=== PATIENT | male | born 1985 | race Caucasian/White ===

== ENCOUNTER → 2018-10-05 | Outpatient (CLI) | payer OTHER ==
[~2018-10-05] MED LIST: AMOX-355 PO; CETI10TA20 PO; FLUT9.9S NS; LISI10TA2 PO; OMEP20CA12 PO; SULF-222 PO; TRAM50TA2 PO
--- NOTE | 2018-10-05 09:55 | Diagnostic Imaging Report ---
PROCEDURE: CT neck soft tissue with contrast. TECHNIQUE: Multiple contiguous axial images were obtained through the neck after the administration of contrast. Auto Exposure Controls were utilized during the CT exam to meet ALARA standards for radiation dose reduction. INDICATION: Questionable mass in the right side of the tongue and tonsil. No prior studies are available for comparison. The visualized intracranial structures are unremarkable. Posterior nasopharynx is unremarkable. Oropharynx appears unremarkable. In particular base of tongue and tonsillar pillar regions without evidence of a discrete mass, bilateral submandibular and parotid glands are symmetric. No thyroid mass is detected. No cervical lymphadenopathy is seen. No fluid collections are identified. Epiglottis and larynx are unremarkable. IMPRESSION: Unremarkable CT of the neck with contrast. Dictated by: Dictated on workstation # [id number]
== END ==
LOC: RAD 07:18
PROVIDERS: ATTEND Otolaryngology Otolaryngology/Facial Plastic Surgery
DX: K14.8 Other diseases of tongue (principal); J02.9 Acute pharyngitis, unspecified
CPT/HCPCS: 70491

== ENCOUNTER 2018-10-09 10:06 | Outpatient (CLI) | payer OTHER ==
[~2018-10-09] VITALS: Ht 177.8 cm; Wt 118.1 kg
[~2018-10-09 10:06] MED LIST changes: -CETI10TA20 PO; -FLUT9.9S NS
[2018-10-09] MEDS ORDERED: FLUT9.9S NS (10:17)
[2018-10-09] MEDS ORDERED: LISI10TA2 PO (10:17)
[2018-10-09] MEDS ORDERED: CETI10TA20 PO (10:17)
[2018-10-10] MEDS ORDERED: ACHD5005 PO (13:42)
== END 2018-10-09 10:27 ==
LOC: PREOP 10:06
PROVIDERS: ATTEND Otolaryngology Otolaryngology/Facial Plastic Surgery
DX: Z01.818 Encounter for other preprocedural examination (principal)

== ENCOUNTER 2018-10-10 07:42 | Day surgery (SDC) | payer OTHER ==
[2018-10-10] VITALS (12 sets, daily range): BP systolic 131–184; BP diastolic 74–116
[~2018-10-10] VITALS: Ht 177.8 cm; Wt 118.1 kg
[~2018-10-10 07:42] MED LIST changes: +CETI10TA20 PO; +FLUT9.9S NS
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
[2018-10-10] MEDS: LACTATED RINGERS 1,000 ML IV PRN ×2 (08:05→11:45)
[2018-10-10 08:25] LABS: BASOPHILS % (AUTO) 0 % (0-10); EOSINOPHILS # (AUTO) 0.1 10^3/uL (0.0-0.3); EOSINOPHILS % (AUTO) 2 % (0-10); HEMATOCRIT 42 % (40-54); HEMOGLOBIN 14.3 G/DL (13.3-17.7); LYMPHOCYTES % (AUTO) 36 % (12-44); MEAN CORPUSCULAR HEMOGLOBIN 30 PG (25-34); MEAN CORPUSCULAR HGB CONC 34 G/DL (32-36); MEAN CORPUSCULAR VOLUME 90 FL (80-99); MEAN PLATELET VOLUME 11.5 FL (7.4-10.4); MONOCYTES # (AUTO) 0.5 X 10^3 (0.0-1.0); MONOCYTES % (AUTO) 9 % (0-12); NEUTROPHILS # (AUTO) 2.9 X 10^3 (1.8-7.8); NEUTROPHILS % (AUTO) 53 % (42-75); PLATELET COUNT 164 10^3/uL (130-400); RED CELL DISTRIBUTION WIDTH 13.1 % (10.0-14.5); WHITE BLOOD COUNT 5.4 10^3/uL (4.3-11.0)
[2018-10-10 08:42] LABS: BUN/CREATININE RATIO 25; CALCIUM 8.9 MG/DL (8.5-10.1); CARBON DIOXIDE 19 MMOL/L (21-32); CHLORIDE 106 MMOL/L (98-107); CREATININE SERUM 0.77 MG/DL (0.60-1.30); GFR ESTIMATED > 60; GLUCOSE 100 MG/DL (70-105); POTASSIUM 3.9 MMOL/L (3.6-5.0); SODIUM 139 MMOL/L (135-145)
[2018-10-10] MEDS ORDERED: ONDANSETRON 4 MG/2 ML (SDV) Z0FRAN ONE ×2 (08:51→12:12)
[2018-10-10] MEDS ORDERED: FAMOTIDINE 20MG/2ML IV (PEPCID) ONE (08:51)
[2018-10-10] MEDS ORDERED: ONDANSETRON 4 MG/2 ML (SDV) Z0FRAN IVP ONE (09:15)
[2018-10-10] MEDS ORDERED: FAMOTIDINE 20MG/2ML IV (PEPCID) IVP ONE (09:15)
[2018-10-10] MEDS ORDERED: LIDOCAINE/EPI 1%-1:100,000 (XYLOCAINE) 20ML ONE (10:25)
[2018-10-10] MEDS ORDERED: MIDAZOLAM 2 MG/2 ML (VERSED) VIAL ONE (10:38)
[2018-10-10] MEDS ORDERED: fentaNYL INJECTION 100 MCG/2 ML AMP ONE ×2 (10:38→11:54)
--- NOTE | 2018-10-10 10:54 | Progress Note-Pre Operative ---
Pre-Operative Progress Note H&P Reviewed The H&P was reviewed, patient examined and no changes noted. Date Seen by Provider: Oct 10, 2018 Time Seen by Provider: 10:45 Date H&P Reviewed: Oct 10, 2018 Time H&P Reviewed: :45 Pre-Operative Diagnosis: Right Unilateral throat pain with REferred ear pain KATIE JUNIOR MD Oct 10, 2018 10:54
[2018-10-10] MEDS ORDERED: proPOfol 200 MG/20 ML (DIPRIVAN) VIAL IV ONE ×2 (11:01→11:23)
[2018-10-10] MEDS ORDERED: ROCURONIUM 10 MG/ML 5 ML SYRINGE IV ONE (11:23)
[2018-10-10] MEDS ORDERED: SUCCINYLCHOLINE INJ 100 MG/5 ML SYR ONE (11:23)
[2018-10-10] MEDS ORDERED: SEVOFLURANE (ULTANE) 15 ML INHAL SOLN ONE ×2 (11:27→12:05)
[2018-10-10] MEDS ORDERED: DEXAMETHASONE 10 MG/ML (DECADRON) 1 ML VIAL ONE (11:27)
--- NOTE | 2018-10-10 11:42 | Progress Note-Post Operative ---
Post-Operative Progess Note Surgeon (s)/[employer] Truck Driver (s) Surgeon KATIE JUNIOR MD [employer] Driver n/a Pre-Operative Diagnosis Right Unilateral throat pain with REferred ear pain Post-Operative Diagnosis same Post-Op Procedure Note Date of Procedure: Oct 10, 2018 Name of Procedure Performed: Direct Laryngosocpy with Biopsies of Right Base of Tongue Description & Findings Description and Findings: n/a Anesthesia Type get Estimated Blood Loss minimal Packing none. Specimen(s) collected/removed right base of tongue biopsies KATIE JUNIOR MD Oct 10, 2018 11:41
[2018-10-10] MEDS ORDERED: HYDROcodone/APAP 5 MG/325 MG (LORTAB) TAB PO PRN (11:45)
[2018-10-10] MEDS ORDERED: ACETAMINOPHEN 325 MG TABLET PO PRN (11:45)
[2018-10-10] MEDS ORDERED: PROMETHAZINE INJ 25 MG/ML (PHENERGAN) AMP IV PRN (11:45)
[2018-10-10] MEDS ORDERED: NEOSTIGMINE 1 MG/ML 5 ML SYRINGE ONE (12:03)
[2018-10-10] MEDS ORDERED: GLYCOPYRROLATE 0.2 MG/ML (ROBINUL) 2 ML VIAL ONE (12:03)
[2018-10-10] MEDS ORDERED: PROMETHAZINE INJ 25 MG/ML (PHENERGAN) AMP IVP ONE (12:15)
[2018-10-10] MEDS ORDERED: ONDANSETRON 4 MG/2 ML (SDV) Z0FRAN IVP PRN (12:15)
[2018-10-10] MEDS ORDERED: HYDROmorphone 2 MG/ML VIAL (DILAUDID) IV ONE (12:15)
[2018-10-10] MEDS ORDERED: ACHD5005 PO (13:42)
--- NOTE | 2018-10-10 13:47 | Anesthesia-General Post-Op ---
General Patient Condition Mental Status/LOC: Same as Preop Cardiovascular: Satisfactory Nausea/Vomiting: Absent Respiratory: Satisfactory Pain: Controlled Complications: Absent Post Op Complications Complications None Follow Up Care/Instructions Patient Instructions None needed. Anesthesia/Patient Condition Patient Condition Patient is doing well, no complaints, stable vital signs, no apparent adverse anesthesia problems. No complications reported per nursing. YEMI KNOX CRNA Oct 10, 2018 13:47
== END 2018-10-10 14:20 | disposition home or self-care (01) ==
LOC: SDC 07:42
PROVIDERS: ATTEND Otolaryngology Otolaryngology/Facial Plastic Surgery
DX: J35.1 Hypertrophy of tonsils (principal); K13.29 Other disturbances of oral epithelium, including tongue; R07.0 Pain in throat; H91.91 Unspecified hearing loss, right ear; I10 Essential (primary) hypertension; K21.9 Gastro-esophageal reflux disease without esophagitis; Z79.899 Other long term (current) drug therapy
CPT/HCPCS: 36415; 80048; 85025; 87081

== ENCOUNTER 2019-07-14 08:47 | Emergency (ER) | payer OTHER ==
[~2019-07-14] VITALS: Ht 180 cm; Wt 118.2 kg
[~2019-07-14 08:47] MED LIST changes: +ACHD5005 PO
--- NOTE | 2019-07-14 09:14 | ED Lower Extremity ---
General Chief Complaint: Lower Extremity Stated Complaint: L FOOT PAIN Nursing Triage Note: PT TO RM 6 WITH COMPLAINT OF LEFT FOOT PAIN AFTER DROPPING TRAILER GATE ON FOOT. PT STATES HAPPENED YESTERDAY. Nursing Sepsis Screen: No Definite Risk Source: patient Exam Limitations: no limitations History of Present Illness Date Seen by Provider: Jul 14, 2019 Time Seen by Provider: 08:58 Initial Comments This 33-year-old gentleman presents to the emergency room with injury to the left foot after dropping a trailer tailgate on it last night. The tailgate was made of angle iron and struck him directly over the dorsal aspect of the foot. He has a contusion in that area as well as bruising on the opposite side of the foot on his sole. He has not been able to bear weight. His foot is generally swollen. He also has arthritic problems and disfigurement of the toes bilaterally. This is being worked up with a rheumatology network consultant. He took 2 leftover hydrocodone last night with modest relief. He also takes diclofenac. Onset: yesterday Allergies and Home Medications Allergies Coded Allergies: aspirin (Verified Allergy, Severe, ANAPHYLAXIS, 10/09/18) Penicillins (Verified Allergy, Mild, HIVES, 10/09/18) Home Medications Cetirizine HCl 10 Mg Tablet, 10 MG PO DAILY, (Reported) Fluticasone Propionate 9.9 Ml [place].susp, 1 SPRAY NS DAILY, (Reported) 1 SPRAY EACH NARE DAILY Hydrocodone Bit/Acetaminophen 1 Tab Tab, 1-2 TAB PO Q4H PRN for PAIN-MODERATE Prescribed by: HANY WHITMAN on 10/10/18 1342 Lisinopril 10 Mg Tablet, 10 MG PO DAILY, (Reported) Oxycodone HCl/Acetaminophen 1 Each Tablet, 1 TAB PO Q4H PRN for PAIN-MODERATE (5-7) Prescribed by: SALEEM TAI on 07/14/19 0953 Patient Home Medication List Home Medication List Reviewed: Yes Review of Systems Constitutional: no symptoms reported EENTM: no symptoms reported Respiratory: no symptoms reported Cardiovascular: no symptoms reported Gastrointestinal: no symptoms reported Genitourinary: no symptoms reported Musculoskeletal: see HPI Skin: see HPI Psychiatric/Neurological: No Symptoms Reported Past Zhxlglv-Ovniof-Pzeihp Hx Past Med/Social Hx: Reviewed and Corrections made Patient Social History Alcohol Use: Occasionally Uses Number of Drinks Today: GG Alcohol Beverage of Choice: Whiskey, [place] Recreational Drug Use: No Smoking Status: Never a Smoker 2nd Hand Smoke Exposure: No Recent Foreign Travel: No Contact w/Someone Who Travel: No Recent Infectious Disease Expo: No Recent Hopitalizations: No Immunizations Up To Date Tetanus Booster (TDap): More than 5yrs Date of Influenza Vaccine: Apr 19, 2014 Seasonal Allergies Seasonal Allergies: Yes Past Medical History Surgeries: Yes (FINGER RECONSTRUCTION) Respiratory: No Cardiac: Yes Hypertension Neurological: No Reproductive Disorders: No Sexually Transmitted Disease: No HIV/AIDS: No Genitourinary: No Gastrointestinal: Yes (MILD REFLUX) Gastroesophageal Reflux Musculoskeletal: Yes Arthritis Endocrine: No HEENT: No Loss of Vision: Denies Hearing Impairment: Denies Cancer: No Psychosocial: No Integumentary: No Blood Disorders: No Adverse Reaction/Blood Tranf: No (N/A) Family Medical History Hypertension 18 MOTHER No Family History of: Asthma Diabetes mellitus Respiratory disorder Seizure disorder Physical Exam Vital Signs Vital Signs - First Documented 07/14/19 08:57 Pulse 104 Resp 20 B/P (MAP) 151/104 (120) Pulse Ox 98 O2 Delivery Room Air Capillary Refill : Less Than 3 Seconds Height, Weight, BMI Height: 5'10.00" Weight: 260lbs. 5.0oz. 118.448051pd; 36.00 BMI Method:Stated General Appearance: WD/WN, mild distress HEENT: normal ENT inspection Cardiovascular: regular rate, rhythm, no edema, no murmur Respiratory: lungs clear, normal breath sounds, no respiratory distress Knees: left knee normal inspection, left knee normal range of motion Ankles: left ankle non-tender, left ankle normal inspection, left ankle normal range of motion, left ankle no evidence of injury Feet: left foot other (there is bruising on the dorsal aspect of the midfoot and corresponding bruising on the plantar aspect medially. There is tenderness over the areas of bruising as well as over the fifth metatarsal. Distal sensation and capillary refill intact.) Neurologic/Psychiatric: set and exhibit designer II-XII nml as tested, no motor/sensory deficits, alert, normal mood/affect, oriented x 3 Skin: normal color, warm/dry, ecchymosis Progress/Results/Core Measures Results/Orders My Orders Orders - SALEEM HOGAN MD Oxycodone/Apap 5/325mg Tablet (Percocet (07/14/19 09:15) Foot, Left, 3 Views (07/14/19 09:07) Medications Given in ED Vital Signs/I&O 07/14/19 07/14/19 08:57 10:21 Pulse 104 88 Resp 20 20 B/P (MAP) 151/104 (120) 146/90 (120) Pulse Ox 98 98 O2 Delivery Room Air Room Air Blood Pressure Mean: 120 Progress Progress Note : Time: 09:13 Progress Note Patient is being treated with Percocet for pain management. X-rays of the foot are pending. Diagnostic Imaging Diagonstic Imaging: Xray Comments X-ray of the left foot viewed by me and report reviewed. See report below: NAME: YOLETTE GOINS [facility] REC#: [id number] PT STATUS: DEP ER : 1985 PHYSICIAN: SALEEM HOGAN MD ADMIT DATE: 07/14/19/ER Signed Date of Exam:07/14/19 FOOT, LEFT, 3 VIEWS HISTORY: Trauma to the dorsal left foot. TECHNIQUE: 3 views of the left foot COMPARISON: None FINDINGS: There is heterogeneous hypodensity seen in the left foot, more pronounced in the distal 2nd through 5th metatarsals. There is chronic lateral angulation of the 2nd toe DIP joint. There is an avulsion fracture at the medial aspect of the 1st metatarsal base. Os peroneum is noted. There is a small plantar calcaneal enthesophyte. IMPRESSION: 1. Nondisplaced avulsion fracture at the medial aspect of the left 1st metatarsal base. 2. Somewhat heterogeneous density, most pronounced in the 2nd through 5th metatarsal heads. This may be due to osteopenia, although other inflammatory process is not excluded. If clinically indicated, nonemergent MRI could be considered. Dictated by: Dictated on workstation # [id number] Dict: 07/14/19929 Trans: 07/14/19 1221 PRISCILLA [id number] Interpreted by: JUAN SIMMONS MD Electronically signed by: JUAN SIMMNOS MD 07/14/19 1221 Departure Impression Primary Impression: Closed fracture of left foot Qualified Codes: S92.902A - Unspecified fracture of left foot, initial encounter for closed fracture Disposition: 01 HOME, SELF-CARE Condition: Improved Departure-Patient Inst. Decision time for Depature: 09:44 Referrals: NO,LOCAL PHYSICIAN (PCP) Primary Care Physician MENA HORTON (Family) Primary Care Physician Patient Instructions: Foot Fracture (DC) Add. Discharge Instructions: Use the cam walker as much as possible. Do not bear weight on your left foot until cleared by orthopedic surgeon or a thermostat mechanic. Follow-up with the orthopedic surgeon or thermostat mechanic as soon as possible. Use Percocet as directed for pain. You may wish to use a stool softener while using Percocet to prevent constipation. Use Percocet with caution as it may cause drowsiness. You may apply ice in 20 minute intervals to help with pain and swelling. Elevate to the level of your heart is much as possible to help with swelling. Compressive wraps such as an Jack bandage may also be used if they provide comfort. Return to care if you have worsening problems. All discharge instructions reviewed with patient and/or family. Voiced understanding. Scripts Oxycodone HCl/Acetaminophen (Percocet 5-325 mg Tablet) 1 Each Tablet 1 TAB PO Q4H PRN for PAIN-MODERATE (5-7) MDD 6 TABS, #20 TAB Prov: SALEEM HOGAN MD 07/14/19 Work/School Note: Work Release Form Date Seen in the Emergency Department: Jul 14, 2019 Return to Work: Jul 15, 2019 Other Restrictions Listed Below: No weightbearing on left foot until cleared SALEEM HOGAN MD Jul 14, 2019 09:14
[2019-07-14] MEDS ORDERED: oxyCODONE/APAP 5/325MG (PERCOCET 5) TABLET PO ONE (09:15)
--- NOTE | 2019-07-14 09:37 | Diagnostic Imaging Report ---
HISTORY: Trauma to the dorsal left foot. TECHNIQUE: 3 views of the left foot COMPARISON: None FINDINGS: There is heterogeneous hypodensity seen in the left foot, more pronounced in the distal 2nd through 5th metatarsals. There is chronic lateral angulation of the 2nd toe DIP joint. There is an avulsion fracture at the medial aspect of the 1st metatarsal base. Os peroneum is noted. There is a small plantar calcaneal enthesophyte. IMPRESSION: 1. Nondisplaced avulsion fracture at the medial aspect of the left 1st metatarsal base. 2. Somewhat heterogeneous density, most pronounced in the 2nd through 5th metatarsal heads. This may be due to osteopenia, although other inflammatory process is not excluded. If clinically indicated, nonemergent MRI could be considered. Dictated by: Dictated on workstation # [id number]
[2019-07-14] MEDS ORDERED: OXYC1TAB87 PO (09:53)
[2019-07-14 10:21] VITALS: BP 146/90
== END 2019-07-14 10:21 | disposition home or self-care (01) ==
LOC: EDUNIT# 08:47 → ER 08:48
DX: S92.902A Unspecified fracture of left foot, initial encounter for closed fracture (principal); I10 Essential (primary) hypertension; Z88.6 Allergy status to analgesic agent; Z88.0 Allergy status to penicillin; Z79.51 Long term (current) use of inhaled steroids; Z82.49 Family history of ischemic heart disease and other diseases of the circulatory system; W20.8XXA Other cause of strike by thrown, projected or falling object, initial encounter
CPT/HCPCS: 73630

== ENCOUNTER 2021-09-20 07:41 | Emergency (ER) | payer OTHER ==
[~2021-09-20] VITALS: Ht 180 cm; Wt 121.0 kg
[~2021-09-20 07:41] MED LIST changes: -CETI10TA20 PO; +CETI10TA49 PO; +LISI10TA25 PO; +OXYC1TAB87 PO
[2021-09-20 08:22] LABS: EOSINOPHILS # (AUTO) 0.1 10^3/uL (0.0-0.3); EOSINOPHILS % (AUTO) 2 % (0-10); HEMOGLOBIN 14.9 g/dL (13.3-17.7)
[2021-09-20 08:24] LABS: BASOPHILS % (AUTO) 1 % (0-10); HEMATOCRIT 43 % (40-54); LYMPHOCYTES # (AUTO) 2.1 10^3/uL (1.0-4.0); LYMPHOCYTES % (AUTO) 47 % (12-44); MEAN CORPUSCULAR HEMOGLOBIN 32 pg (25-34); MEAN CORPUSCULAR HGB CONC 34 g/dL (32-36); MEAN CORPUSCULAR VOLUME 92 fL (80-99); MEAN PLATELET VOLUME 11.1 fL (9.0-12.2); MONOCYTES # (AUTO) 0.3 10^3/uL (0.0-1.0); MONOCYTES % (AUTO) 6 % (0-12); NEUTROPHILS % (AUTO) 45 % (42-75); WHITE BLOOD COUNT 4.5 10^3/uL (4.3-11.0)
[2021-09-20 08:28] LABS: ALBUMIN 3.8 GM/DL (3.2-4.5); POTASSIUM 3.8 MMOL/L (3.6-5.0)
[2021-09-20 08:29] LABS: CALCIUM 8.9 MG/DL (8.5-10.1); PLATELET COUNT 124 10^3/uL (130-400)
[2021-09-20 08:30] LABS: TOTAL PROTEIN 7.2 GM/DL (6.4-8.2)
[2021-09-20] MEDS ORDERED: NS IV 1000 ML 1,000 ML IV SCH ×2 (08:30→09:45)
[2021-09-20] MEDS ORDERED: ONDANSETRON 4 MG/2 ML (SDV) Z0FRAN IVP ONE (08:30)
[2021-09-20 08:32] LABS: BILIRUBIN,TOTAL 0.6 MG/DL (0.1-1.0)
[2021-09-20 08:34] LABS: CREATININE SERUM 0.85 MG/DL (0.60-1.30)
--- NOTE | 2021-09-20 08:37 | ED General ---
General Chief Complaint: Dizziness/Syncope Stated Complaint: DIZZY / VOMITING Nursing Triage Note: pt states he has been having trouble keeping food down for over a month. was referred to see a gi specialist apt on 09-30. Source of Information: Patient Exam Limitations: No Limitations History of Present Illness Date Seen by Provider: Sep 20, 2021 Time Seen by Provider: 08:08 Initial Comments Patient is a 36-year-old male who presents to the emergency department today with a chief complaint of feeling dizzy, lightheaded and nauseous. Patient has been fighting stomach issues for about the last 1 to 2 months. He has a follow- up scheduled for mid month with Dr. Mendoza, GI doctor in [place]. Patient states that every time he eats within minutes he vomits. He states this is even an issue with drinking large amounts of fluids. He has been fighting constipation as well. Had a CAT scan about a week ago at [facility]. He reports that he was told nothing significant was found at that time. He denies persistent black or bloody stools. No problems with urination. He does feel lightheaded and dizzy when he stands up. Had nausea with significant diaphoresis yesterday. States he threw up his blood pressure medicines this morning. States that his bowel movements have turned "yellow". Periodically takes an acid catholic priest, omeprazole [id number]. Denies heartburn issues. Tells me that he had surgery as an for pyloric stenosis. No other abdom inal surgeries. No recent fevers, chills, productive cough or other URI symptoms. All other review of systems reviewed and negative except as stated. Timing/Duration: Other (1-2 months) Severity: Moderate Modifying Factors: worse with Movement; improves with Rest Associated Systoms: Nausea/Vomiting, Other (weight loss 10-15# in 6 weeks) Allergies and Home Medications Allergies Coded Allergies: aspirin (Verified Allergy, Severe, ANAPHYLAXIS, 10/09/18) Penicillins (Verified Allergy, Mild, HIVES, 10/09/18) Patient Home Medication List Home Medication List Reviewed: Yes Cetirizine HCl (Zyrtec) 10 Mg Tablet, 10 MG PO DAILY, (Reported) Entered as Reported by: MERLINE GUEVARA on 10/09/18 1017 Fluticasone Propionate (Flonase Allergy Relief) 9.9 Ml [place].susp, 1 SPRAY NS DAILY, (Reported) Entered as Reported by: MERLINE GUEVARA on 10/09/18 1017 Hydrocodone Bit/Acetaminophen (Lortab 5 Mg Tablet) 1 Tab Tab, 1-2 TAB PO Q4H PRN for PAIN-MODERATE Prescribed by: HANY WHITMAN on 10/10/18 1342 Lisinopril (Lisinopril) 10 Mg Tablet, 10 MG PO DAILY, (Reported) Entered as Reported by: MERLINE GUEVARA on 10/09/18 1017 Oxycodone HCl/Acetaminophen (Percocet 5-325 mg Tablet) 1 Each Tablet, 1 TAB PO Q4H PRN for PAIN-MODERATE (5-7) Prescribed by: SALEEM TAI on 07/14/19 0953 Review of Systems Review of Systems Constitutional: see HPI EENTM: no symptoms reported Respiratory: no symptoms reported Cardiovascular: no symptoms reported Gastrointestinal: abdominal pain, constipation, nausea Genitourinary: no symptoms reported Musculoskeletal: no symptoms reported Skin: no symptoms reported Psychiatric/Neurological: Other (dizziness, weakness) All Other Systems Reviewed Negative Unless Noted: Yes Past Vexnptv-Lnrllh-Ylgish Hx Patient Social History Tobacco Use?: No Substance use?: No Alcohol Use?: Yes Alcohol type: Hard Liquor Alcohol Frequency: Couple times a week Immunizations Up To Date Tetanus Booster (TDap): More than 5yrs Seasonal Allergies Seasonal Allergies: Yes Past Medical History Surgery/Hospitalization HX: knee repair, growth taken out of throat Surgeries: Yes (FINGER RECONSTRUCTION) Respiratory: No Cardiac: Yes Hypertension Neurological: No Reproductive Disorders: No Sexually Transmitted Disease: No HIV/AIDS: No Genitourinary: No Gastrointestinal: Yes (MILD REFLUX) Gastroesophageal Reflux Musculoskeletal: Yes Arthritis Endocrine: No HEENT: No Loss of Vision: Denies Hearing Impairment: Denies Cancer: No Psychosocial: No Integumentary: No Blood Disorders: No Adverse Reaction/Blood Tranf: No (N/A) Family Medical History Hypertension 19 MOTHER No Family History of: Asthma Diabetes mellitus Respiratory disorder Seizure disorder Physical Exam Vital Signs Vital Signs - First Documented 09/20/21 07:52 Temp 37.0 Pulse 82 Resp 22 B/P (MAP) 169/103 (125) Pulse Ox 97 O2 Delivery Room Air Capillary Refill : Less Than 3 Seconds Height, Weight, BMI Height: 5'10.00" Weight: 260lbs. 5.0oz. [id number]; 37.00 BMI Method:Stated General Appearance: No Apparent Distress, WD/WN Eyes: Bilateral Eye Normal Inspection, Bilateral Eye PERRL, Bilateral Eye EOMI HEENT: PERRL/EOMI, TMs Normal, Moist Mucous Membranes Neck: Normal Inspection, Non Tender, Supple Respiratory: Lungs Clear, Normal Breath Sounds, No Accessory Muscle Use, No Respiratory Distress Cardiovascular: Regular Rate, Rhythm, Normal Peripheral Pulses Gastrointestinal: Soft, Tenderness (epigastrum, LUQ; no involuntary guarding or rebound) Extremity: Normal Inspection, No Pedal Edema Neurologic/Psychiatric: Alert, Oriented x3, No Motor/Sensory Deficits, Normal Mood/Affect Skin: Normal Color, Warm/Dry Progress/Results/Core Measures Suspected Sepsis SIRS Temperature: Pulse: 82 Respiratory Rate: 22 Laboratory Tests 09/20/21 08:04: White Blood Count 4.5 Blood Pressure 169 /103 Mean: 125 Laboratory Tests 09/20/21 08:04: Creatinine 0.85, Platelet Count 124L, Total Bilirubin 0.6 Results/Orders Lab Results Laboratory Tests Test 09/20/21 08:04 Range/Units White Blood Count 4.5 4.3-11.0 10^3/uL Red Blood Count 4.72 4.30-5.52 10^6/uL Hemoglobin 14.9 13.3-17.7 g/dL Hematocrit 43 40-54 % Mean Corpuscular Volume 92 80-99 fL Mean Corpuscular Hemoglobin 32 25-34 pg Mean Corpuscular Hemoglobin Concent 34 32-36 g/dL Red Cell Distribution Width 12.6 10.0-14.5 % Platelet Count 124 L 130-400 10^3/uL Mean Platelet Volume 11.1 9.0-12.2 fL Immature Granulocyte % (Auto) 0 % Neutrophils (%) (Auto) 45 42-75 % Lymphocytes (%) (Auto) 47 H 12-44 % Monocytes (%) (Auto) 6 0-12 % Eosinophils (%) (Auto) 2 0-10 % Basophils (%) (Auto) 1 0-10 % Neutrophils # (Auto) 2.0 1.8-7.8 10^3/uL Lymphocytes # (Auto) 2.1 1.0-4.0 10^3/uL Monocytes # (Auto) 0.3 0.0-1.0 10^3/uL Eosinophils # (Auto) 0.1 0.0-0.3 10^3/uL Basophils # (Auto) 0.0 0.0-0.1 10^3/uL Immature Granulocyte # (Auto) 0.0 0.0-0.1 10^3/uL Percent Immature Platelet Fraction 7.2 0.0-7.6 % Sodium Level 137 135-145 MMOL/L Potassium Level 3.8 3.6-5.0 MMOL/L Chloride Level 103 98-107 MMOL/L Carbon Dioxide Level 14 L 21-32 MMOL/L Anion Gap 20 H 5-14 MMOL/L Blood Urea Nitrogen 16 7-18 MG/DL Creatinine 0.85 0.60-1.30 MG/DL Estimat Glomerular Filtration Rate 115 BUN/Creatinine Ratio 19 Glucose Level 106 H 70-105 MG/DL Calcium Level 8.9 8.5-10.1 MG/DL Corrected Calcium 9.1 8.5-10.1 MG/DL Total Bilirubin 0.6 0.1-1.0 MG/DL Aspartate Amino Transf (AST/SGOT) 48 H 5-34 U/L Alanine Aminotransferase (ALT/SGPT) 59 H 0-55 U/L Alkaline Phosphatase 74 40-136 U/L Total Protein 7.2 6.4-8.2 GM/DL Albumin 3.8 3.2-4.5 GM/DL My Orders Orders - LAUREN HYMAN MD Ed Iv/Invasive Line Start (09/20/21 08:18) Cbc With Automated Diff (09/20/21 08:18) Comprehensive Metabolic Panel (09/20/21 08:18) Orthostatic Vital Signs (Adult (09/20/21 08:18) Ns Iv 1000 Ml (Sodium Chloride 0.9%) (09/20/21 08:30) Ondansetron Injection (Zofran Injectio (09/20/21 08:30) Metoclopramide Injection (Reglan Injecti (09/20/21 09:45) Diphenhydramine Injection (Benadryl Inje (09/20/21 09:45) Ns Iv 1000 Ml (Sodium Chloride 0.9%) (09/20/21 09:45) Medications Given in ED Current Medications Medications Dose Ordered Sig/Veena Route Start Time Stop Time Status Last Admin Dose Admin Diphenhydramine HCl 25 mg ONCE ONCE IVP 09/20/21 09:45 09/20/21 09:46 DC 09/20/21 10:22 25 MG Metoclopramide HCl 10 mg ONCE ONCE IVP 09/20/21 09:45 09/20/21 09:46 DC 09/20/21 10:22 10 MG Ondansetron HCl 8 mg ONCE ONCE IVP 09/20/21 08:30 09/20/21 08:31 DC 09/20/21 08:27 8 MG Vital Signs/I&O 09/20/21 07:52 Temp 37.0 Pulse 82 Resp 22 B/P (MAP) 169/103 (125) Pulse Ox 97 O2 Delivery Room Air Capillary Refill : Less Than 3 Seconds Blood Pressure Mean: 125 Progress Note : Time: 10:57 Progress Note Patient is feeling well after his first liter of fluids. Still little bit nauseous. Added some Reglan and Benadryl. Labs have been reviewed and are reassuring. I suspect that he may have some type of outlet obstruction that is causing him to vomit every time he eats and drinks. This is been a chronic problem, he already has follow-[place] bill[place]. I have given him 2 L of fluids here in the emergency department. He states he feels more energetic. No clinical or objective findings to warrant further study here in the emergency department. He has had a CAT scan of his abdomen and pelvis already through the clinic. I do not believe he needs an ultrasound at this time. No concerning findings on physical examination or reflected in the labs for acute cholecystitis. No other findings concerning for an acute abdomen. Home with Reglan and return precautions. The patient is comfortable with this plan of care. All questions are sought and answered. Departure Impression Primary Impression: Dehydration Additional Impression: Chronic vomiting Disposition: 01 HOME, SELF-CARE Condition: Improved Departure-Patient Inst. Decision time for Depature: 10:55 Referrals: NO,LOCAL PHYSICIAN (PCP) Primary Care Physician MENA HORTON (Family) Primary Care Physician Patient Instructions: Dehydration, Adult ED Add. Discharge Instructions: I have written you a prescription for some Reglan, you can take this 1 every 6-8 hours as needed for nausea. It may make you a little sleepy. Please keep your follow-up appointment with Dr. Mendoza in a couple of weeks. Return to the emergency department for any increased abdominal pain especially with fever, vomiting blood or passing blood in her stool. You should take an acid catholic priest such as omeprazole every day until you see Dr. Mendoza. Scripts Metoclopramide HCl (Reglan) 10 Mg Tablet 10 MG PO Q6H, #30 TAB 1 Refill Prov: LAUREN HYMAN MD 09/20/21 LAUREN HYMAN MD Sep 20, 2021 08:37
[2021-09-20] MEDS ORDERED: diphenhydrAMINE 50 MG/ML INJ (BENADRYL) IVP ONE (09:45)
[2021-09-20] MEDS ORDERED: METOCLOPRAMIDE INJ 10 MG/2 ML (REGLAN) IVP ONE (09:45)
[2021-09-20] MEDS ORDERED: METO-310 PO (10:57)
[2021-09-20 11:26] VITALS: BP 125/95
== END 2021-09-20 11:26 | disposition home or self-care (01) ==
LOC: EDUNIT# 07:41 → ER 07:42
DX: E86.0 Dehydration (principal); R11.2 Nausea with vomiting, unspecified; K21.9 Gastro-esophageal reflux disease without esophagitis; Z79.899 Other long term (current) drug therapy
CPT/HCPCS: 36415; 80053; 85025

== ENCOUNTER 2021-10-19 15:58 | Emergency (ER) | payer OTHER ==
[~2021-10-19] VITALS: Ht 71 cm; Wt 117.9 kg
[~2021-10-19 15:58] MED LIST changes: +METO-310 PO
[2021-10-19] MEDS ORDERED: TETANUS,DIPTH,PERTUSS P/F (BOOSTRIX) 0.5 ML VIAL IM ONE (16:15)
--- NOTE | 2021-10-19 16:15 | ED Upper Extremity ---
General Stated Complaint: HAND PAIN Source: patient Exam Limitations: no limitations History of Present Illness Date Seen by Provider: October 19, 2021 Time Seen by Provider: 16:11 Initial Comments Patient is a 36-year-old male presents ED with a puncture wound to right palmar hand. This occurred 1 hour ago while at work. He states his hand slipped on a bolt with redness. He states he had a pull out the night with the bolt. Noted some stringy stuff when removing a bolt. Patient has some pain with movement of the right thumb. No active bleeding. States he had a hydraulic fluid on his hand at the time. Not up-to-date on his tetanus within the past 5 years. No distal numbness and tingling, nausea vomiting, diarrhea. Allergies and Home Medications Allergies Coded Allergies: aspirin (Verified Allergy, Severe, ANAPHYLAXIS, 10/09/18) Penicillins (Verified Allergy, Mild, HIVES, 10/09/18) Patient Home Medication List Home Medication List Reviewed: Yes Cetirizine HCl (Zyrtec) 10 Mg Tablet, 10 MG PO DAILY, (Reported) Entered as Reported by: MERLINE GUEVARA on 10/09/18 1017 Doxycycline Monohydrate (Doxycycline Monohydrate) 100 Mg Tablet, 100 MG PO BID Prescribed by: GAMAL HERRERA on 10/19/21 1656 Fluticasone Propionate (Flonase Allergy Relief) 9.9 Ml [place].susp, 1 SPRAY NS DAILY, (Reported) Entered as Reported by: MERLINE GUEVARA on 10/09/18 1017 Hydrocodone Bit/Acetaminophen (Lortab 5 Mg Tablet) 1 Tab Tab, 1-2 TAB PO Q4H PRN for PAIN-MODERATE Prescribed by: HANY WHITMAN on 10/10/18 1342 Hydrocodone/Acetaminophen (Hydrocodone-Acetamin 5-325 mg) 5 Mg-325 Mg Tablet, 1 TAB PO Q4H PRN for PAIN-MODERATE (5-7) Prescribed by: GAMAL HERRERA on 10/19/21 1652 Lisinopril (Lisinopril) 10 Mg Tablet, 10 MG PO DAILY, (Reported) Entered as Reported by: MERLINE GUEVARA on 10/09/18 1017 Metoclopramide HCl (Reglan) 10 Mg Tablet, 10 MG PO Q6H Prescribed by: LAUREN HYMAN on 09/20/21 1057 Oxycodone HCl/Acetaminophen (Percocet 5-325 mg Tablet) 1 Each Tablet, 1 TAB PO Q4H PRN for PAIN-MODERATE (5-7) Prescribed by: SALEEM TAI on 07/14/19 0953 Review of Systems Constitutional: No chills, No diaphoresis, No fever EENTM: No ear pain, No blurred vision, No nose pain, No throat pain, No throat swelling Respiratory: No cough, No dyspnea on exertion, No short of breath Cardiovascular: No chest pain, No edema Gastrointestinal: No abdominal pain, No diarrhea, No nausea, No vomiting Genitourinary: No decreased output Musculoskeletal: joint pain, muscle pain Skin: other (Laceration right hand) All Other Systems Reviewed Negative Unless Noted: Yes Past Wytmnjb-Etxhhd-Unysqg Hx Immunizations Up To Date Tetanus Booster (TDap): More than 5yrs Seasonal Allergies Seasonal Allergies: Yes Past Medical History Surgery/Hospitalization HX: knee repair, growth taken out of throat Surgeries: Yes (FINGER RECONSTRUCTION) Respiratory: No Cardiac: Yes Hypertension Neurological: No Reproductive Disorders: No Sexually Transmitted Disease: No HIV/AIDS: No Genitourinary: No Gastrointestinal: Yes (MILD REFLUX) Gastroesophageal Reflux Musculoskeletal: Yes Arthritis Endocrine: No HEENT: No Loss of Vision: Denies Hearing Impairment: Denies Cancer: No Psychosocial: No Integumentary: No Blood Disorders: No Adverse Reaction/Blood Tranf: No (N/A) Family Medical History Hypertension 19 MOTHER No Family History of: Asthma Diabetes mellitus Respiratory disorder Seizure disorder Physical Exam Vital Signs Vital Signs - First Documented 10/19/21 16:05 Temp 36.3 Pulse 89 Resp 18 B/P (MAP) 159/89 (112) Pulse Ox 97 O2 Delivery Room Air Capillary Refill : Height, Weight, BMI Height: 5'10.00" Weight: 260lbs. 5.0oz. [id number]; 37.00 BMI Method:Stated General Appearance: WD/WN, no apparent distress HEENT: PERRL/EOMI, normal ENT inspection, TMs normal, pharynx normal Neck: non-tender, full range of motion, supple, normal inspection Cardiovascular: regular rate, rhythm, no edema, no gallop, no JVD Respiratory: chest non-tender, lungs clear, normal breath sounds, no respiratory distress, no accessory muscle use Gastrointestinal: normal bowel sounds, non tender, soft, no organomegaly Back: normal inspection, no CVA tenderness, no vertebral tenderness Shoulder: normal inspection, non-tender, no evidence of injury Elbow/Forearm: normal inspection, non-tender, no evidence of injury, normal ROM Hand: Right, laceration (2 cm laceration right palmar hand between the first and second metacarpals. Normal active range of motion right thumb with pain with flexion and opposition), soft tissue tenderness Neurologic/Psychiatric: [place] guide II-XII nml as tested, no motor/sensory deficits, normal mood/affect, oriented x 3 Skin: other (2 cm laceration right palmar thumb.) Progress/Results/Core Measures Results/Orders My Orders Orders - ASHLEY BRITT Hand, Right, 3 Views (10/19/21 16:10) Dipht,Pertuss(Acell),Tet Adult (Boostrix (10/19/21 16:15) Medications Given in ED Current Medications Medications Dose Ordered Sig/Veena Route Start Time Stop Time Status Last Admin Dose Admin Diphtheria/ Tetanus/Acell Pertussis 0.5 ml ONCE ONCE IM 10/19/21 16:15 10/19/21 16:16 DC 10/19/21 16:26 0.5 ML Vital Signs/I&O 10/19/21 16:05 Temp 36.3 Pulse 89 Resp 18 B/P (MAP) 159/89 (112) Pulse Ox 97 O2 Delivery Room Air Departure Communication (PCP) Patient suffered a puncture wound to the right palmar hand between the first and second. Difficulty with flexion and opposition of the thumb. This may be secondary to tissue inflammation versus muscular injury. 4 sutures were placed here. Extensive irrigation with Shur-Clens soap. Procedure documented note. 4 Ethilon sutures were placed here in the ED. X-ray was negative for acute fracture. Did note vague densities in the soft tissue webspace between the first and second metacarpal on the AP view. No obvious densities noted on the oblique and lateral. Discussed may have a possible foreign body to this location. Recommend hand surgeon outpatient follow-up. Provided number in discharge instructions. Discussed wound care. Doxycycline prophylactically secondary to dirty wound from hydraulic fluid. Patient Was given a tetanus shot. He is allergic to penicillins. Recommend removing sutures in 10 days. Return precaution were discussed with patient. Hand was wrapped up. Discussed immobilization to allow healing with brace versus wrap Impression Primary Impression: Hand laceration Disposition: 01 HOME, SELF-CARE Condition: Stable Departure-Patient Inst. Decision time for Depature: 16:51 Referrals: WILFREDO OCHOA,LOCAL PHYSICIAN (PCP) Primary Care Physician Patient Instructions: Laceration Repair With Stitches ED Add. Discharge Instructions: Recommend keeping the hand immobilized. Recommend pain medication as needed. Keep the area clean with Neosporin 2 or 3 times a day. Follow-up with hand surgery for further evaluation. Scripts Doxycycline Monohydrate (Doxycycline Monohydrate) 100 Mg Tablet 100 MG PO BID for 7 Days, #14 TAB Prov: ASHLEY BRITT 10/19/21 Hydrocodone/Acetaminophen (Hydrocodone-Acetamin 5-325 mg) 5 Mg-325 Mg Tablet 1 TAB PO Q4H PRN for PAIN-MODERATE (5-7), #10 TAB Prov: ASHELY BRITT 10/19/21 Work/School Note: Work Release Form Date Seen in the Emergency Department: October 19, 2021 Return to Work: October 22, 2021 ASHLEY BRITT October 19, 2021 16:15
--- NOTE | 2021-10-19 16:42 | Diagnostic Imaging Report ---
INDICATION: Laceration to the palm of the hand. TIME OF EXAM: 04:34 p.m. TECHNIQUE: Three views of the right hand were obtained. FINDINGS: There appears to be an old fracture deformity at the base of the fifth metacarpal. No acute metacarpal or phalangeal fracture is seen. Carpus is unremarkable. There are some vague densities noted in the webspace between the first and second metacarpals on the AP view. These are not reproduced on the oblique or lateral views. Foreign bodies cannot be entirely excluded. No other abnormalities are seen. IMPRESSION: 1. No acute bony abnormality detected. 2. Vague densities noted in the soft tissue webspace between the first and second metacarpals. Foreign bodies cannot be entirely excluded. Dictated by: Dictated on workstation # [id number]
[2021-10-19] MEDS ORDERED: ACHD5005 PO (16:52)
[2021-10-19] MEDS ORDERED: DOXY100T31 PO (16:56)
[2021-10-19 17:06] VITALS: BP 136/95
== END 2021-10-19 17:09 | disposition home or self-care (01) ==
LOC: EDUNIT# 15:58 → ER 16:03
DX: S61.411A Laceration without foreign body of right hand, initial encounter (principal); Z23 Encounter for immunization; W45.8XXA Other foreign body or object entering through skin, initial encounter
CPT/HCPCS: 12001; 73130; 90715

== ENCOUNTER 2021-12-23 03:18 | Inpatient (IN) | payer OTHER ==
[~2021-12-23] VITALS: Ht 180 cm; Wt 115.4 kg
[~2021-12-23 03:18] MED LIST changes: +DOXY100T31 PO
--- NOTE | 2021-12-23 04:13 | ED GI ---
General Chief Complaint: Abdominal/GI Problems Stated Complaint: N/V/D Nursing Triage Note: PT ARRIVAL TO ER WITH COMPLAINT OF N/V/D SINCE MONDAY. PT STATES THAT HE HAS LONG HISTORY OF THIS FOR THE LAST 6 MONTHS. PT STATES THAT HE HAS HAD COLONOSCOPY AND ENDOSCOPY. PT STATES THAT THEY ALSO WANT HIM TO DO A HYDA SCAN, BUT HE WAS UNABLE TO MAKE THE APPOINTMENT. PT STATES THAT HE HAS BEEN VOMITING 30-40 TIMES PER DAY AND EVEN A SMALL SIP OF WATER MAKES HIM VIOLENTLY VOMIT. PT STATES THAT HE IS HAVING 10-12 EPISODES OF DIARRHEA PER DAY BUT HASN'T ATE IN 4 DAYS SO HE HASN'T HAD DIARRHEA BAD. Source of Information: Patient History of Present Illness Date Seen by Provider: Dec 23, 2021 Time Seen by Provider: 03:40 Initial Comments PT ARRIVES VIA POV FROM HOME C/O NAUSEA/VOMITING/DIARRHEA AND DIFFUSE UPPER ABDOMINAL PAIN AND DIFFUSE LOWER BACK PAIN SINCE Monday12/19/21 STATES HE CANNOT KEEP ANYTHING DOWN, INCLUDING WATER HAS VOMITED "OVER 30 TIMES" TODAY AND EVERY DAY--"30-40 TIMES A DAY" , AND HAS HAD "10-12" EPISODES OF DIARRHEA EVERY DAY. STATES HE HAS NOT HAD ANY DIARRHEA TODAY--"BECAUSE I HAVEN'T KEPT ANYTHING DOWN" NO HEMATEMESIS OR COFFEE GROUND EMESIS NO BLACK/BLOODY/TARRY STOOLS DENIES ANY DIFFICULTY URINATING BUT STATES HE IS NOT URINATING MUCH AND HIS URINE IS DARK C/O DIZZINESS C/O SUBJECTIVE FEVER STATES HE HAS NOT HAD ANY FOOD FOR 3 DAYS, AND NO LIQUIDS X 2 DAYS PT DID DRINK "A FEW DRINKS" ON MONDAY NIGHT PT STATES HE HAS BEEN HAVING THIS PROBLEM FOR THE LAST 6 MONTHS HAS SEEN LEISURE STUDIES PROFESSOR STEPHANE HORTON FOR IT--LAST SAW HER ABOUT A MONTH AGO AND WAS STARTED ON VASCEPA FOR HIGH CHOLESTEROL AND TRIGLYCERIDES. PT ALSO HAS BEEN TAKING PANTOPRAZOLE PT SAW A HEAD CASHIER, DR. Rickie VIZCAINO, FOR AN OUTPATIENT EGD AND COLONOSCOPY IN [place] A MONTH AGO--PT STATES WAS NORMAL. HAS NOT SEEN A HEAD CASHIER AT ANY OTHER TIME PT HAS HAD HIDA SCAN SCHEDULED TWICE FOR THIS PROBLEM--FIRST ONE WAS 2-3 WEEKS AGO--DID NOT KEEP APPOINTMENT. RESCHEDULED IT FOR LAST WEEK AND DID NOT KEEP IT. HAS NOT HAD ANY OTHER TESTS DONE. PRIOR ABDOMINAL SURGERIES INCLUDE PYLOROPLASTY FOR PYLORIC STENOSIS. NO OTHER ABDOMINAL SURGERIES. PT DENIES SMOKING, OCCASIONAL ALCOHOL USE, AND DENIES DRUG USE PT HAS NOT HAD COVID VACCINE DENIES ANY SICK CONTACTS DENIES ANY SUSPICIOUS FOODS. Allergies and Home Medications Allergies Coded Allergies: aspirin (Verified Allergy, Severe, ANAPHYLAXIS, 10/09/18) Penicillins (Verified Allergy, Mild, HIVES, 10/09/18) Patient Home Medication List Cetirizine HCl (Zyrtec) 10 Mg Tablet, 10 MG PO DAILY, (Reported) Entered as Reported by: MERLINE GUEVARA on 10/09/18 1017 Doxycycline Monohydrate (Doxycycline Monohydrate) 100 Mg Tablet, 100 MG PO BID Prescribed by: GAMAL HERRERA on 10/19/21 1656 Fluticasone Propionate (Flonase Allergy Relief) 9.9 Ml [place].susp, 1 SPRAY NS DAILY, (Reported) Entered as Reported by: MERLINE GUEVARA on 10/09/18 1017 Hydrocodone Bit/Acetaminophen (Lortab 5 Mg Tablet) 1 Tab Tab, 1-2 TAB PO Q4H PRN for PAIN-MODERATE Prescribed by: HANY WHITMAN on 10/10/18 1342 Hydrocodone/Acetaminophen (Hydrocodone-Acetamin 5-325 mg) 5 Mg-325 Mg Tablet, 1 TAB PO Q4H PRN for PAIN-MODERATE (5-7) Prescribed by: GAMAL HERRERA on 10/19/21 1652 Lisinopril (Lisinopril) 10 Mg Tablet, 10 MG PO DAILY, (Reported) Entered as Reported by: MERLINE GUEVARA on 10/09/18 1017 Metoclopramide HCl (Reglan) 10 Mg Tablet, 10 MG PO Q6H Prescribed by: LAUREN HYMAN on 09/20/21 1057 Oxycodone HCl/Acetaminophen (Percocet 5-325 mg Tablet) 1 Each Tablet, 1 TAB PO Q4H PRN for PAIN-MODERATE (5-7) Prescribed by: SALEEM TAI on 07/14/19 0953 Review of Systems Review of Systems Constitutional: see HPI, dizziness, fever EENTM: No Symptoms Reported Respiratory: No Symptoms Reported Cardiovascular: No Symptoms Reported Gastrointestinal: See HPI, Abdominal Pain, Diarrhea, Nausea, Poor Appetite, Poor Fluid Intake, Vomiting Genitourinary: See HPI Musculoskeletal: see HPI, back pain Skin: no symptoms reported Psychiatric/Neurological: No Symptoms Reported Endocrine: No Symptoms Reported Hematologic/Lymphatic: No Symptoms Reported Past [id number]-[id number]-[id number] Hx Patient Social History Tobacco Use?: No Smoking Status: Never a Smoker Use of E-Cig and/or Vaping dev: No Substance use?: No Alcohol Use?: Yes Alcohol type: Beer, Hard Liquor Alcohol Frequency: Once in a while Pt feels they are or have been: No Immunizations Up To Date Tetanus Booster (TDap): More than 5yrs Influenza Vaccine Up-to-Date: No; Not Current Seasonal Allergies Seasonal Allergies: Yes Past Medical History Surgery/Hospitalization HX: Hypertension history Surgeries: Yes (FINGER RECONSTRUCTION; PYLOROPLASTY ) Abdominal, Orthopedic Respiratory: No Cardiac: Yes (HIGH CHOLESTEROL AND TRIGLYCERIDES) High Cholesterol, Hypertension Neurological: No Reproductive Disorders: No Sexually Transmitted Disease: No HIV/AIDS: No Genitourinary: No Gastrointestinal: Yes (PYLORIC STENOSIS INFANT--S/P SURGERYP; CHRONIC N/V/D/ABD PAIN ) Gastroesophageal Reflux Musculoskeletal: Yes (FINGER SURGERY) Arthritis Endocrine: No HEENT: No Loss of Vision: Denies Hearing Impairment: Denies Cancer: No Psychosocial: No Integumentary: No Blood Disorders: No Adverse Reaction/Blood Tranf: No (N/A) Family Medical History Hypertension 19 MOTHER No Family History of: Asthma Diabetes mellitus Respiratory disorder Seizure disorder Physical Exam Vital Signs Vital Signs - First Documented 12/23/21 03:37 Temp 36.3 Pulse 125 Resp 18 B/P (MAP) 176/96 (122) Pulse Ox 96 O2 Delivery Room Air Capillary Refill : Less Than 3 Seconds Height/Weight/BMI Height: 5'10.00" Weight: 260lbs. 5.0oz. 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 II-XII nml as tested, no motor/sensory deficits, alert, normal mood/affect, oriented x 3 Skin: normal color, warm/dry (FACE FLUSHED) Progress/Results/Core Measures Results/Orders Lab Results Laboratory Tests Test 12/23/21 03:50 12/23/21 04:15 12/23/21 04:35 Range/Units Influenza Type A (RT-PCR) Not Detected Not Detecte Influenza Type B (RT-PCR) Not Detected Not Detecte SARS-CoV-2 RNA (RT-PCR) Not Detected Not Detecte White Blood Count 6.0 4.3-11.0 10^3/uL Red Blood Count 4.69 4.30-5.52 10^6/uL Hemoglobin 16.0 13.3-17.7 g/dL Hematocrit 43 40-54 % Mean Corpuscular Volume 92 80-99 fL Mean Corpuscular Hemoglobin 34 25-34 pg Mean Corpuscular Hemoglobin Concent 37 H 32-36 g/dL Red Cell Distribution Width 12.5 10.0-14.5 % Platelet Count 138 130-400 10^3/uL Mean Platelet Volume 11.6 9.0-12.2 fL Immature Granulocyte % (Auto) 0 % Neutrophils (%) (Auto) 73 42-75 % Lymphocytes (%) (Auto) 18 12-44 % Monocytes (%) (Auto) 7 0-12 % Eosinophils (%) (Auto) 1 0-10 % Basophils (%) (Auto) 1 0-10 % Neutrophils # (Auto) 4.4 1.8-7.8 10^3/uL Lymphocytes # (Auto) 1.1 1.0-4.0 10^3/uL Monocytes # (Auto) 0.4 0.0-1.0 10^3/uL Eosinophils # (Auto) 0.1 0.0-0.3 10^3/uL Basophils # (Auto) 0.0 0.0-0.1 10^3/uL Immature Granulocyte # (Auto) 0.0 0.0-0.1 10^3/uL Sodium Level 126 L 135-145 MMOL/L Potassium Level 4.4 3.6-5.0 MMOL/L Chloride Level 91 L 98-107 MMOL/L Carbon Dioxide Level 12 L 21-32 MMOL/L Anion Gap 23 H 5-14 MMOL/L Blood Urea Nitrogen 5 L 7-18 MG/DL Creatinine 0.92 0.60-1.30 MG/DL Estimat Glomerular Filtration Rate 110 BUN/Creatinine Ratio 5 Glucose Level 156 H 70-105 MG/DL Calcium Level 9.4 8.5-10.1 MG/DL Corrected Calcium 9.6 8.5-10.1 MG/DL Magnesium Level 1.7 1.6-2.4 MG/DL Total Bilirubin 1.7 H 0.1-1.0 MG/DL Aspartate Amino Transf (AST/SGOT) 135 H 5-34 U/L Alanine Aminotransferase (ALT/SGPT) 92 H 0-55 U/L Alkaline Phosphatase 126 40-136 U/L Total Protein 10.2 H 6.4-8.2 GM/DL Albumin 3.8 3.2-4.5 GM/DL Amylase Level 15 L 25-125 U/L Lipase 123 H 8-78 U/L Serum Alcohol < 10 <10 MG/DL Urine Color YELLOW Urine Clarity CLEAR Urine pH 6.0 5-9 Urine Specific [place] >=1.030 1.016-1.022 Urine Protein 1+ H NEGATIVE Urine Glucose (UA) NEGATIVE NEGATIVE Urine Ketones 2+ H NEGATIVE Urine Nitrite NEGATIVE NEGATIVE Urine Bilirubin 2+ H NEGATIVE Urine Urobilinogen 1.0 < = 1.0 MG/DL Urine Leukocyte Esterase NEGATIVE NEGATIVE Urine RBC (Auto) NEGATIVE NEGATIVE Urine RBC NONE /HPF Urine WBC 0-2 /HPF Urine Squamous Epithelial Cells 0-2 /HPF Urine Crystals NONE /LPF Urine Bacteria TRACE /HPF Urine Casts NONE /LPF Urine Mucus MODERATE H /LPF Urine Culture Indicated NO Urine Opiates Screen NEGATIVE NEGATIVE Urine Oxycodone Screen NEGATIVE NEGATIVE Urine Methadone Screen NEGATIVE NEGATIVE Urine Propoxyphene Screen NEGATIVE NEGATIVE Urine Barbiturates Screen NEGATIVE NEGATIVE Ur Tricyclic Antidepressants Screen NEGATIVE NEGATIVE Urine Phencyclidine Screen NEGATIVE NEGATIVE Urine Amphetamines Screen NEGATIVE NEGATIVE Urine Methamphetamines Screen NEGATIVE NEGATIVE Urine Benzodiazepines Screen NEGATIVE NEGATIVE Urine Cocaine Screen NEGATIVE NEGATIVE Urine Cannabinoids Screen NEGATIVE NEGATIVE My Orders Orders - JHONY GARDNER DO Covid 19 Inhouse Test (12/23/21 03:43) Influenza A And B By Pcr (12/23/21 03:43) Isolation Central Supply Req (12/23/21 03:43) Ed Iv/Invasive Line Start (12/23/21 04:03) Ct Abdomen/Pelvis W (12/23/21 04:03) Alcohol (12/23/21 04:03) Amylase (12/23/21 04:03) Cbc With Automated Diff (12/23/21 04:03) Comprehensive Metabolic Panel (12/23/21 04:03) Drug Screen Stat (Urine) (12/23/21 04:03) Lipase (12/23/21 04:03) Magnesium (12/23/21 04:03) Ua Culture If Indicated (12/23/21 04:03) Ed Iv/Invasive Line Start (12/23/21 04:03) Lactated Ringers (Lr 1000 Ml Iv Solution (12/23/21 04:15) Ondansetron Injection (Zofran Injectio (12/23/21 04:15) Iohexol Injection (Omnipaque 350 Mg/Ml 1 (12/23/21 05:15) Sodium Chloride Flush (Catheter Flush Sy (12/23/21 05:15) Ns (Ivpb) (Sodium Chloride 0.9% Ivpb Bag (12/23/21 05:15) Ed Iv/Invasive Line Start (12/23/21 05:40) Ns Iv 1000 Ml (Sodium Chloride 0.9%) (12/23/21 05:45) Ed Admission (Communication) (12/23/21 06:05) Medications Given in ED Current Medications Medications Dose Ordered Sig/Veena Route Start Time Stop Time Status Last Admin Dose Admin Iohexol 100 ml ONCE ONCE IV 12/23/21 05:15 12/23/21 05:16 DC 12/23/21 05:11 100 ML Lactated Ringer's 1,000 ml @ 0 mls/hr Q0M ONCE IV 12/23/21 04:15 12/23/21 04:17 DC 12/23/21 04:16 999 MLS/HR Ondansetron HCl 4 mg ONCE ONCE IVP 12/23/21 04:15 12/23/21 04:17 DC 12/23/21 04:16 4 MG Sodium Chloride 10 ml NEEDED PRN IV 12/23/21 05:15 12/23/21 05:11 10 ML Sodium Chloride 100 ml ONCE ONCE IV 12/23/21 05:15 12/23/21 05:16 DC 12/23/21 05:11 80 ML Vital Signs/I&O 12/23/21 03:37 Temp 36.3 Pulse 125 Resp 18 B/P (MAP) 176/96 (122) Pulse Ox 96 O2 Delivery Room Air Blood Pressure Mean: 122 Progress Progress Note : Progress Note PLACED IN ISOLATION ROOM PPE WORN COVID AND FLU TESTING DONE GIVEN IV FLUIDS AND ZOFRAN Departure Impression Primary Impression: Pancreatitis Additional Impressions: INTRACTABLE NAUSEA/VOMITING/DIARRHEA Hyponatremia Fatty liver Departure-Patient Inst. Referrals: NO,LOCAL PHYSICIAN (PCP/Family) Primary Care Physician JHONY GARDNER DO Dec 23, 2021 04:13
[2021-12-23] MEDS ORDERED: ONDANSETRON 4 MG/2 ML (SDV) Z0FRAN IVP ONE (04:15)
[2021-12-23] MEDS ORDERED: LACTATED RINGERS 1,000 ML IV ONE (04:15)
[2021-12-23 04:22] LABS: BASOPHILS % (AUTO) 1 % (0-10); EOSINOPHILS # (AUTO) 0.1 10^3/uL (0.0-0.3); EOSINOPHILS % (AUTO) 1 % (0-10); HEMATOCRIT 43 % (40-54); LYMPHOCYTES # (AUTO) 1.1 10^3/uL (1.0-4.0); LYMPHOCYTES % (AUTO) 18 % (12-44); MEAN CORPUSCULAR HEMOGLOBIN 34 pg (25-34); MEAN CORPUSCULAR HGB CONC 37 g/dL (32-36); MEAN CORPUSCULAR VOLUME 92 fL (80-99); MEAN PLATELET VOLUME 11.6 fL (9.0-12.2); MONOCYTES # (AUTO) 0.4 10^3/uL (0.0-1.0); MONOCYTES % (AUTO) 7 % (0-12); NEUTROPHILS # (AUTO) 4.4 10^3/uL (1.8-7.8); NEUTROPHILS % (AUTO) 73 % (42-75); PLATELET COUNT 138 10^3/uL (130-400)
[2021-12-23 04:32] LABS: ALBUMIN 3.8 GM/DL (3.2-4.5); CHLORIDE 91 MMOL/L (98-107); POTASSIUM 4.4 MMOL/L (3.6-5.0); SODIUM 126 MMOL/L (135-145)
[2021-12-23 04:33] LABS: CALCIUM 9.4 MG/DL (8.5-10.1)
[2021-12-23 04:34] LABS: AMYLASE 15 U/L (25-125)
[2021-12-23 04:35] LABS: GLUCOSE 156 MG/DL (70-105); TOTAL PROTEIN 10.2 GM/DL (6.4-8.2)
[2021-12-23 04:36] LABS: BILIRUBIN,TOTAL 1.7 MG/DL (0.1-1.0)
[2021-12-23 04:38] LABS: ALKALINE PHOSPHATASE 126 U/L (40-136); CREATININE SERUM 0.92 MG/DL (0.60-1.30); GFR ESTIMATED 110
[2021-12-23 04:39] LABS: BUN/CREATININE RATIO 5
[2021-12-23 04:41] LABS: CLARITY,URINE CLEAR; COLOR,URINE YELLOW; GLUCOSE, URINE (UA) NEGATIVE (NEGATIVE); KETONES,URINE 2+ (NEGATIVE); LEUKOCYTE ESTERASE ,URINE NEGATIVE (NEGATIVE); NITRITE,URINE NEGATIVE (NEGATIVE); PROTEIN,URINE 1+ (NEGATIVE)
[2021-12-23 04:41] LABS: MAGNESIUM 1.7 MG/DL (1.6-2.4)
[2021-12-23 04:42] LABS: LIPASE 123 U/L (8-78)
[2021-12-23 04:48] LABS: BACTERIA,URINE TRACE /HPF; BILIRUBIN,URINE 2+ (NEGATIVE); SQUAMOUS EPITHELIAL CELL,UR 0-2 /HPF; WBC,URINE 0-2 /HPF
[2021-12-23 04:53] LABS: AMPHETAMINE SCREEN, URINE NEGATIVE (NEGATIVE); BARBITURATE SCREEN URINE NEGATIVE (NEGATIVE); BENZODIAZEPINES SCREEN URINE NEGATIVE (NEGATIVE); CANNABINOID SCREEN, URINE NEGATIVE (NEGATIVE); COCAINE SCREEN URINE NEGATIVE (NEGATIVE); METHADONE STAT NEGATIVE (NEGATIVE); OPIATE SCREEN URINE NEGATIVE (NEGATIVE); OXYCODONE STAT NEGATIVE (NEGATIVE); PROPOXYPHENE STAT NEGATIVE (NEGATIVE); TRICYCLIC ANTIDEPRESSANTS SCRE NEGATIVE (NEGATIVE)
[2021-12-23] MEDS ORDERED: NS 100 ML (IVPB) BAG IV ONE (05:15)
[2021-12-23] MEDS ORDERED: CATHETER FLUSH 10 ML SYR IV PRN (05:15)
[2021-12-23] MEDS ORDERED: IOHEXOL 350 MG/ML 100 ML (OMNIPAQUE 350) VIAL IV ONE (05:15)
[2021-12-23 05:41] LABS: ALANINE AMINOTRANSFERASE 92 U/L (0-55)
[2021-12-23] MEDS ORDERED: NS IV 1000 ML 1,000 ML IV SCH ×2 (05:45→06:45)
--- NOTE | 2021-12-23 06:04 | Diagnostic Imaging Report ---
CT ABDOMEN/PELVIS W TECHNIQUE: Multiple contiguous axial images were obtained through the abdomen and pelvis after administration of intravenous contrast. All CT scans use one or more of the following dose optimizing techniques: automated exposure control, MA and/or KvP adjustment based on patient size and exam type or iterative reconstruction. INDICATION: Nausea, vomiting and diarrhea. Abdominal pain COMPARISON: 05/18/2014 FINDINGS: Lower chest: The lung bases are clear. No pericardial or pleural effusion. Peritoneum: No free intraperitoneal air or fluid. Liver and biliary system: The liver has marked hypoattenuation indicative of severe hepatic steatosis. The liver is also noted to be enlarged measuring 21 cm. The gallbladder is normal. No biliary duct dilation. Spleen and Pancreas: Spleen is normal. There is a small amount of inflammatory stranding around the tail the pancreas with edema extending along the left paracolic gutter. Pancreas enhances normally without features of necrosis. No peripancreatic fluid collection. Adrenals: Normal. tract: The kidneys enhance normally without suspicious mass or obstruction. Urinary bladder is decompressed. Prostate is normal in size. GI tract: Stomach is decompressed. No bowel obstruction. No pericolonic inflammatory changes. Normal appendix. Vasculature and Lymph nodes: Normal caliber aorta. No abdominal or pelvic lymphadenopathy. Musculoskeletal: No concerning osseous lesion. IMPRESSION: 1. Acute interstitial pancreatitis involving the tail of the pancreas. No pancreatic necrosis, abscess or pseudocyst. 2. Hepatomegaly with diffuse steatosis. 3. Findings are in agreement with the preliminary report. Dictated by: Dictated on workstation # [id number]
[2021-12-23 06:10] LABS: CARBON DIOXIDE 12 MMOL/L (21-32)
[2021-12-23] MEDS ORDERED: CALCIUM CARBONATE 500 MG (TUMS) TAB.CHEW PO PRN (06:45)
[2021-12-23] MEDS ORDERED: HYDROmorphone 2 MG/ML VIAL (DILAUDID) IVP PRN ×2 (06:45→17:00)
[2021-12-23] MEDS ORDERED: diphenhydrAMINE 25 MG TAB (BENADRYL) PO PRN (06:45)
[2021-12-23] MEDS ORDERED: MELATONIN 3 MG TABLET PO PRN (06:45)
[2021-12-23] MEDS ORDERED: ONDANSETRON 4 MG (ZOFRAN) ORAL DISSOLVE TAB PO PRN (06:45)
[2021-12-23] MEDS ORDERED: ONDANSETRON 4 MG/2 ML (SDV) Z0FRAN IV PRN (06:45)
[2021-12-23] MEDS ORDERED: polyethylene glycoL POWDER 17 GM (MIRALAX) PACK PO PRN (06:45)
[2021-12-23] MEDS ORDERED: MILK OF MAGNESIA 400 MG/5 ML 30 ML UDC PO PRN (06:45)
[2021-12-23] MEDS ORDERED: ANTACID SUSP 30 ML UDC (MYLANTA) PO PRN (06:45)
[2021-12-23] MEDS ORDERED: LACTULOSE SYRUP 10GM/15ML (ENULOSE) 30ML UDC PO PRN (06:45)
[2021-12-23] MEDS ORDERED: BISACODYL 10 MG SUPP (DULCOLAX) PR PRN (06:45)
[2021-12-23] MEDS ORDERED: diphenhydrAMINE 50 MG/ML INJ (BENADRYL) IVP PRN (06:45)
[2021-12-23] MEDS: DOCUSATE SODIUM 100 MG (COLACE) CAP PO SCH ×2 (07:27→21:18)
[2021-12-23] MEDS: SENNOSIDES 8.6 MG (SENOKOT) TAB PO SCH ×2 (07:27→21:17)
[2021-12-23] MEDS: PANTOPRAZOLE 40 MG (PROTONIX) VIAL IV SCH (07:27)
[2021-12-23] MEDS: ENOXAPARIN 40 MG/0.4 ML (LOVENOX) SYR SC SCH (07:28)
[2021-12-23 07:59] VITALS: BP 125/79
[2021-12-23] MEDS: THIAMINE INJECTION 100 MG, FOLIC ACID INJECTION 1 MG, VITAMIN MULTI INJECTION 10 ML, MA... IV SCH ×5 (08:23)
[2021-12-23 09:21] LABS: ABG BASE EXCESS -1.8 MMOL/L (-2.5-2.5); ABG OXYGEN SATURATION 97 % (94-100); ABG PCO2 39 MMHG (35-45); ABG PH 7.38 (7.37-7.43); ABG PO2 85 MMHG (79-93); ABG TCO2 23.7 MMOL/L (21.0-31.0)
[2021-12-23 09:22] LABS: ALLENS TEST YES-POS
[2021-12-23 09:23] LABS: INSPIRED O2 RA; PATIENT TEMP 37.4; VENTILATOR NO
[2021-12-23] MEDS: LACTATED RINGERS 1,000 ML IV SCH ×3 (10:41→16:31)
[2021-12-23] MEDS: inSUlin ASPART (NovoLOG) 1 UNIT/0.01 ML (CHARGE PER UNIT) SC SCH ×3 (11:13→21:17)
[2021-12-23 11:35] VITALS: BP 136/93
[2021-12-23 11:47] LABS: CALCIUM 8.9 MG/DL (8.5-10.1); CREATININE SERUM 0.84 MG/DL (0.60-1.30); POTASSIUM 3.7 MMOL/L (3.6-5.0)
[2021-12-23] MEDS ORDERED: ROSU20TA32 PO (14:14)
[2021-12-23] MEDS ORDERED: LISI1TAB46 PO (14:14)
[2021-12-23] MEDS ORDERED: ICOS1CAP PO (14:14)
[2021-12-23] MEDS ORDERED: PANT40TA52 PO (14:16)
[2021-12-23 15:24] VITALS: BP 170/113
[2021-12-23] MEDS ORDERED: RT-ALBUTEROL SULF 2.5 MG/3 ML PRE-MIX VIAL INH PRN (15:30)
--- NOTE | 2021-12-23 15:51 | Consultation - Surgery ---
SIOMARA SIMMS 12/23/21 1551: History of Present Illness History of Present Illness Patient Consulted On(courtney/time) 12/23/21 15:49 Date Seen by Provider: Dec 23, 2021 Time Seen by Provider: 15:49 Reason for Visit: Pancreatitis History of Present Illness Mr. Mondragon is a 36 year old male with a past medical history of hypertension and hyperlipidemia who presented to the ED with acute on chronic pancreatitis. He reports LUQ and LLQ abdominal pain, nausea, and persistent vomiting occurring since Monday. He describes the pain as crampy; he says that it comes and goes in waves. He says nothing has made it any better; movement makes it worse. He has associated chills and diarrhea. He denies any radiation of the pain. He rates the severity as a 10/10. Allergies and Home Medications Allergies Coded Allergies: aspirin (Verified Allergy, Severe, ANAPHYLAXIS, 10/09/18) Penicillins (Verified Allergy, Mild, HIVES, 10/09/18) Patient Home Medication List Icosapent Ethyl (Vascepa) 1 Gram Capsule, 2 GM PO BID, (Reported) Entered as Reported by: LUCA SHIN on 12/23/211413 Last Action: Reviewed Lisinopril/Hydrochlorothiazide (Lisinopril-Hctz 20-12.5 mg Tab) 20 Mg-12.5 Mg Tablet, 1 EACH PO DAILY, (Reported) Entered as Reported by: LUCA SHIN on 12/23/211413 Last Action: Reviewed Pantoprazole Sodium (Pantoprazole Sodium) 40 Mg Tablet.dr, 40 MG PO DAILY, (Reported) Entered as Reported by: LUCA SHIN on 12/23/211415 Last Action: Reviewed Rosuvastatin Calcium (Rosuvastatin Calcium) 20 Mg Tablet, 20 MG PO DAILY, (Reported) Entered as Reported by: LUCA SHIN on 12/23/211413 Last Action: Reviewed Past Kccacll-Zjywyn-Jaqpfg Hx Patient Social History Smoking Status: Never a Smoker 2nd Hand Smoke Exposure: No Recent Hopitalizations: No Alcohol Use?: Yes (Patient reports "2 drinks of bourbon 2-3 times per week") Have you traveled recently?: No Immunizations Up To Date Tetanus Booster (TDap): More than 5yrs Date of Influenza Vaccine: Apr 19, 2014 Seasonal Allergies Seasonal Allergies: Yes Surgeries History of Surgeries: Yes (FINGER RECONSTRUCTION; PYLOROPLASTY ) Surgeries: Abdominal (Pyloric stenosis), Orthopedic (Right meninscus repair and right knee arthroscopy) Respiratory History of Respiratory Disorde: No Cardiovascular History of Cardiac Disorders: Yes (HIGH CHOLESTEROL AND TRIGLYCERIDES) Cardiac Disorders: High Cholesterol, Hypertension Neurological History of Neurological Disord: No Reproductive System Hx Reproductive Disorders: No Sexually Transmitted Disease: No HIV/AIDS: No Genitourinary History of Genitourinary Disor: No Gastrointestinal History of Gastrointestinal Di: Yes (PYLORIC STENOSIS --S/P SURGERYP; CHRONIC N/V/D/ABD PAIN ) Gastrointestinal Disorders: Gastroesophageal Reflux Musculoskeletal History of Musculoskeletal Dis: Yes (FINGER SURGERY) Musculoskeletal Disorders: Arthritis Endocrine History of Endocrine Disorders: No HEENT History of HEENT Disorders: No Loss of Vision: Denies Hearing Impairment: Denies Cancer History of Cancer: No Psychosocial History of Psychiatric Problem: No Integumentary History of Skin or Integumenta: No Blood Transfusions History of Blood Disorders: No Adverse Reaction to a Blood Tr: No (N/A) Family Medical History Significant Family History: Diabetes (Mother and father) Family Medial History: Hypertension 19 MOTHER No Family History of: Asthma Diabetes mellitus Respiratory disorder Seizure disorder Review of Systems-General Constitutional: chills; No fever EENTM: No blurred vision, No double vision Respiratory: No cough, No dyspnea on exertion Cardiovascular: No chest pain, No palpitations Gastrointestinal: abdominal pain, diarrhea, nausea, vomiting Musculoskeletal: No muscle pain Physical Exam-General Problems Physical Exam Vital Signs Vital Signs - First Documented 12/23/21 12/23/21 03:37 15:24 Temp 36.3 Pulse 125 Resp 18 B/P (MAP) 176/96 (122) Pulse Ox 96 O2 Delivery Room Air FiO2 21 Capillary Refill : Less Than 3 Seconds General Appearance: WD/WN, no apparent distress HEENT: PERRL/EOMI; No pale conjunctivae (R), No pale conjunctivae (L) Neck: non-tender, supple; No lymphadenopathy (R), No lymphadenopathy (L) Respiratory: chest non-tender, lungs clear, normal breath sounds, no respiratory distress, no accessory muscle use Cardiovascular: normal peripheral pulses, regular rate, rhythm, no edema, no murmur Peripheral Pulses: 2+ Radial Pulses (R), 2+ Radial Pulses (L) Gastrointestinal: normal bowel sounds, soft, tenderness (LUQ and LLQ with moderate tenderness. Minor tenderness in other quadrants.) Extremities: no pedal edema, no calf tenderness Neurologic/Psychiatric: no motor/sensory deficits, alert, normal mood/affect, oriented x 3 Skin: normal color, warm/dry Data Review Labs Laboratory Tests 12/23/21 03:50: Influenza Type A (RT-PCR) Not Detected, Influenza Type B (RT-PCR) Not Detected, SARS-CoV-2 RNA (RT-PCR) Not Detected 12/23/21 04:15: White Blood Count 6.0, Red Blood Count 4.69, Hemoglobin 16.0, Hematocrit 43, Mean Corpuscular Volume 92, Mean Corpuscular Hemoglobin 34, Mean Corpuscular Hemoglobin Concent 37H, Red Cell Distribution Width 12.5, Platelet Count 138, Mean Platelet Volume 11.6, Immature Granulocyte % (Auto) 0, Neutrophils (%) (Auto) 73, Lymphocytes (%) (Auto) 18, Monocytes (%) (Auto) 7, Eosinophils (%) (Auto) 1, Basophils (%) (Auto) 1, Neutrophils # (Auto) 4.4, Lymphocytes # (Auto) 1.1, Monocytes # (Auto) 0.4, Eosinophils # (Auto) 0.1, Basophils # (Auto) 0.0, Immature Granulocyte # (Auto) 0.0, Sodium Level 126L, Potassium Level 4.4, Chloride Level 91L, Carbon Dioxide Level 12L, Anion Gap 23H, Blood Urea Nitrogen 5L, Creatinine 0.92, Estimat Glomerular Filtration Rate 110, BUN/Creatinine Ratio 5, Glucose Level 156H, Calcium Level 9.4, Corrected Calcium 9.6, Magnesium Level 1.7, Total Bilirubin 1.7H, Aspartate Amino Transf (AST/SGOT) 135H, Alanine Aminotransferase (ALT/SGPT) 92H, Alkaline Phosphatase 126, Total Protein 10.2H, Albumin 3.8, Amylase Level 15L, Lipase 123H, Serum Alcohol < 10 12/23/21 04:35: Urine Color YELLOW, Urine Clarity CLEAR, Urine pH 6.0, Urine Specific [place] >=1.030, Urine Protein 1+H, Urine Glucose (UA) NEGATIVE, Urine Ketones 2+H, Urine Nitrite NEGATIVE, Urine Bilirubin 2+H, Urine Urobilinogen 1.0, Urine Leukocyte Esterase NEGATIVE, Urine RBC (Auto) NEGATIVE, Urine RBC NONE, Urine WBC 0-2, Urine Squamous Epithelial Cells 0-2, Urine Crystals NONE, Urine Bacteria TRACE, Urine Casts NONE, Urine Mucus MODERATEH, Urine Culture Indicated NO, Urine Opiates Screen NEGATIVE, Urine Oxycodone Screen NEGATIVE, Urine Methadone Screen NEGATIVE, Urine Propoxyphene Screen NEGATIVE, Urine Barbiturate s Screen NEGATIVE, Ur Tricyclic Antidepressants Screen NEGATIVE, Urine Phencyclidine Screen NEGATIVE, Urine Amphetamines Screen NEGATIVE, Urine Methamphetamines Screen NEGATIVE, Urine Benzodiazepines Screen NEGATIVE, Urine Cocaine Screen NEGATIVE, Urine Cannabinoids Screen NEGATIVE 12/23/21 09:05: Blood Gas Puncture Site LEFT RAD, Blood Gas Patient Temperature 37.4, Arterial Blood pH 7.38, Arterial Blood Partial Pressure CO2 39, Arterial Blood Partial Pressure O2 85, Arterial Blood HCO3 23, Arterial Blood Total CO2 23.7, Arterial Blood Oxygen Saturation 97, Arterial Blood Base Excess -1.8, Yonatan Test YES-POS, Blood Gas Ventilator Setting NO, Blood Gas Inspired Oxygen RA 12/23/21 11:15: Sodium Level 128L, Potassium Level 3.7, Chloride Level 94L, Carbon Dioxide Level 24, Anion Gap 10, Blood Urea Nitrogen 2L, Creatinine 0.84, Estimat Glomerular Filtration Rate 115, BUN/Creatinine Ratio 2, Glucose Level 215H, Lactic Acid Level 1.11, Calcium Level 8.9, Beta-Hydroxybutyrate (Chem panel) 0.84H Radiology Date of Exam:12/23/21 CT ABDOMEN/PELVIS W CT ABDOMEN/PELVIS W TECHNIQUE: Multiple contiguous axial images were obtained through the abdomen and pelvis after administration of intravenous contrast. All CT scans use one or more of the following dose optimizing techniques: automated exposure control, MA and/or KvP adjustment based on patient size and exam type or iterative reconstruction. INDICATION: Nausea, vomiting and diarrhea. Abdominal pain COMPARISON: 05/18/2014 FINDINGS: Lower chest: The lung bases are clear. No pericardial or pleural effusion. Peritoneum: No free intraperitoneal air or fluid. Liver and biliary system: The liver has marked hypoattenuation indicative of severe hepatic steatosis. The liver is also noted to be enlarged measuring 21 cm. The gallbladder is normal. No biliary duct dilation. Spleen and Pancreas: Spleen is normal. There is a small amount of inflammatory stranding around the tail the pancreas with edema extending along the left paracolic gutter. Pancreas enhances normally without features of necrosis. No peripancreatic fluid collection. Adrenals: Normal. tract: The kidneys enhance normally without suspicious mass or obstruction. Urinary bladder is decompressed. Prostate is normal in size. GI tract: Stomach is decompressed. No bowel obstruction. No pericolonic inflammatory changes. Normal appendix. Vasculature and Lymph nodes: Normal caliber aorta. No abdominal or pelvic lymphadenopathy. Musculoskeletal: No concerning osseous lesion. IMPRESSION: 1. Acute interstitial pancreatitis involving the tail of the pancreas. No pancreatic necrosis, abscess or pseudocyst. 2. Hepatomegaly with diffuse steatosis. 3. Findings are in agreement with the preliminary report. Assessment/Plan Assessment/Plan Assessment/Plan A/P Acute on chronic pancreatitis CT shows pancreatitis involving tail of the pancreas without pancreatic necrosis Lipase of 123 Continue IVF, pain control, and vitamin replacement as needed CT showed no evidence of cholelithiasis, consider RUQ ultrasound to ensure absence of gallstones. If gallstones are present consider cholecystectomy Hepatomegaly Diffuse steatosis Hyperbilirubinemia Total bilirubin of 1.7 Transaminitis AST and ALT 135 and 92 respectively LFT elevation pattern shows evidence of excessive alcohol use Hyponatremia 126 on admission 128 as of this afternoon Discouraged excessive consumption of water, encourage drinking fluids with adequate electrolyte replacement Hypertension Hyperlipidemia CARLITOSLANNYVINNY DO 12/23/21 1834: History of Present Illness History of Present Illness Time Seen by Provider: 11:11 History of Present Illness Surgery asked to consult regarding Pancreatitis. HPI per IM: Shashi Mondragon is a 36 year old male with PMH HTN, HLD, alcohol abuse, who presented with nausea and vomiting. He has not been able to hold anything down for a few days. He is having some abdominal pain that is sharp and radiates to his back. He has been unable to keep anything down and throws up shortly after eating anything. He has been dealing with ongoing GI issues for several months. He has been dealing with chronic diarrhea. He has undergone an EGD which he reports was unrevealing. He denies fevers and chills. He denies chest pain. He denies shortness of breath. He denies tobacco use. He reports drinking a few drinks a few nights a week. He reports that he used to drink more. He denies illicit drug use. When I spoke to pt he stated he was feeling much better after the fluids. He stated that he has not been able to eat or drink "hardly at all" for past few days. He has history of pancreatitis, being worked up as outpt and had a HIDA scheduled. He states he used to drink a pint a day, but now only has a few drinks 1-2 times per week. He has history of hypertriglyderidemia. Allergies and Home Medications Allergies Coded Allergies: aspirin (Verified Allergy, Severe, ANAPHYLAXIS, 10/09/18) Penicillins (Verified Allergy, Mild, HIVES, 10/09/18) Patient Home Medication List Home Medication List Reviewed: Yes Icosapent Ethyl (Vascepa) 1 Gram Capsule, 2 GM PO BID, (Reported) Entered as Reported by: LUCA SHIN on 12/23/211413 Last Action: Reviewed Lisinopril/Hydrochlorothiazide (Lisinopril-Hctz 20-12.5 mg Tab) 20 Mg-12.5 Mg Tablet, 1 EACH PO DAILY, (Reported) Entered as Reported by: LUCA SHIN on 12/23/211413 Last Action: Reviewed Pantoprazole Sodium (Pantoprazole Sodium) 40 Mg Tablet.dr, 40 MG PO DAILY, (Reported) Entered as Reported by: LUCA SHIN on 12/23/211415 Last Action: Reviewed Rosuvastatin Calcium (Rosuvastatin Calcium) 20 Mg Tablet, 20 MG PO DAILY, (Reported) Entered as Reported by: LUCA SHIN on 12/23/211413 Last Action: Reviewed Past Hicmzrc-Cjcmjp-Jbpkqy Hx Patient Social History Smoking Status: Never a Smoker Alcohol Use?: Yes (Patient reports "2 drinks of bourbon 2-3 times per week") Seasonal Allergies Seasonal Allergies: Yes Surgeries History of Surgeries: Yes Surgeries: Abdominal (Pyloric stenosis), Orthopedic (Right meninscus repair and right knee arthroscopy) Respiratory History of Respiratory Disorde: No Cardiovascular History of Cardiac Disorders: Yes Cardiac Disorders: High Cholesterol (high triglycerides), Hypertension Neurological History of Neurological Disord: No Genitourinary History of Genitourinary Disor: No Gastrointestinal History of Gastrointestinal Di: Yes Gastrointestinal Disorders: Gastroesophageal Reflux, Pancreatitis Musculoskeletal History of Musculoskeletal Dis: Yes Musculoskeletal Disorders: Arthritis Endocrine History of Endocrine Disorders: No Cancer History of Cancer: No Psychosocial History of Psychiatric Problem: No Integumentary History of Skin or Integumenta: No Family Medical History Significant Family History: Diabetes (Mother and father), Hypertension Family Medial History: Hypertension 19 MOTHER Review of Systems-General Constitutional: chills; No fever EENTM: No blurred vision, No double vision, No mouth swelling, No epistaxis Respiratory: No cough, No dyspnea on exertion Cardiovascular: No chest pain, No palpitations Gastrointestinal: abdominal pain, diarrhea, nausea, vomiting Genitourinary: No dysuria, No frequency, No hematuria Musculoskeletal: joint pain, joint swelling; No muscle pain Skin: No change in color, No change in hair/nails Psychiatric/Neurological: Denies Anxiety, Denies Depressed, Denies Seizure, Denies Tremors Physical Exam-General Problems Physical Exam General Appearance: WD/WN, mild distress Eyes: Bilateral Eye PERRL, Bilateral Eye EOMI HEENT: No scleral icterus (R), No scleral icterus (L), No pale conjunctivae (R), No pale conjunctivae (L) Neck: non-tender, supple Respiratory: chest non-tender, lungs clear, normal breath sounds, no respiratory distress, no accessory muscle use Cardiovascular: no edema, no murmur Gastrointestinal: normal bowel sounds, soft, no organomegaly, tenderness (LUQ and LLQ with moderate tenderness. Minor tenderness in other quadrants.) Rectal: deferred Back: no CVA tenderness, no vertebral tenderness Extremities: no pedal edema, no calf tenderness Neurologic/Psychiatric: no motor/sensory deficits, alert, normal mood/affect, oriented x 3 Skin: normal color, warm/dry Lymphatic: no adenopathy (neck, axilla or groin) Assessment/Plan Assessment/Plan Assessment/Plan Acute on chronic pancreatitis CT shows pancreatitis involving tail of the pancreas without pancreatic necrosis, Lipase of 123 Continue IVF, pain control, and vitamin replacement as needed CT showed no evidence of cholelithiasis, I believe pt had RUQ ultrasoundl wh ich showed the absence of gallstones. Since there are no gallstones present; there is no indicatioin for cholecystectomy Hepatomegaly Diffuse steatosis Hyperbilirubinemia Total bilirubin of 1.7 Transaminitis AST and ALT 135 and 92 respectively LFT elevation pattern shows evidence of excessive alcohol use Hyponatremia 126 on admission 128 as of this afternoon Discouraged excessive consumption of water, encourage drinking fluids with adequate electrolyte replacement Hypertension Hyperlipidemia Supervisory-Addendum Brief Verification & Attestation Participated in pt care: history, MDM, physical Personally performed: exam, history, MDM, supervision of care Care discussed with: Medical Student Procedures: n/a Verification and Attestation of Medical Student E/M Service A medical student performed and documented this service. I then reviewed and verified all information documented by the medical student and made modifications to such information, when appropriate. I personally performed a physical exam, medical decision making and then discussed any differences between the notes and made revisions as necessary to create one note. Vinny Maria , 12/23/21 , 18:39 SIOMARA SIMMS Dec 23, 2021 15:51 VINNY MARIA DO Dec 23, 2021 18:34
[2021-12-23 15:52] VITALS: BP 153/92
[2021-12-23] MEDS: ACETAMINOPHEN 325 MG TABLET PO PRN (16:32)
--- NOTE | 2021-12-23 17:59 | History & Physical-Hospitalist ---
History of Present Illness HPI/Chief Complaint Shashi Mondragon is a 36 year old male with PMH HTN, HLD, alcohol abuse, who presented with nausea and vomiting. He has not been able to hold anything down for a few days. He is having some abdominal pain that is sharp and radiates to his back. He has been unable to keep anything down and throws up shortly after eating anything. He has been dealing with ongoing GI issues for several months. He has been dealing with chronic diarrhea. He has undergone an EGD which he reports was unrevealing. He denies fevers and chills. He denies chest pain. He denies shortness of breath. He denies tobacco use. He reports drinking a few drinks a few nights a week. He reports that he used to drink more. He denies illicit drug use. Source: patient Exam Limitations: no limitations Date Seen 12/23/21 Time Seen by a Provider: 10:55 Attending Physician Dyan Merida PCP Admitting Physician: Violeta Squires DO Attending Physician: Violeta Squires DO Referring Physician Date of Admission Dec 23, 2021 at 06:27 Home Medications & Allergies Home Medications Reviewed patient Home Medication Reconciliation performed by pharmacy medication reconciliations civilian technician and/or nursing. Patients Allergies have been reviewed. Allergies Allergies Coded Allergies aspirin (Verified Allergy, Severe, ANAPHYLAXIS, 10/09/18) Penicillins (Verified Allergy, Mild, HIVES, 10/09/18) Past Rafjrfr-Fnjimj-Riorbe Hx Patient Social History Tobacco Use?: No Smoking Status: Never a Smoker Use of E-Cig and/or Vaping dev: No Substance use?: No Alcohol Use?: Yes (Patient reports "2 drinks of bourbon 2-3 times per week") Alcohol type: Beer, Hard Liquor Alcohol Frequency: Once in a while Pt feels they are or have been: No Immunizations Up To Date Date of Influenza Vaccine: Apr 19, 2014 Tetanus Booster (TDap): Less Than 5 Years Seasonal Allergies Seasonal Allergies: Yes Current Status Advance Directives: No Communicates: Verbally Primary Language: Faroese Preferred Spoken Language: Faroese Is interpretation needed?: No Implanted or Applied Medical D: None Past Medical History Surgeries: Abdominal (Pyloric stenosis), Orthopedic (Right meninscus repair and right knee arthroscopy) High Cholesterol, Hypertension Sexually Transmitted Disease: No HIV/AIDS: No Gastroesophageal Reflux Arthritis Loss of Vision: Denies Hearing Impairment: Denies Blood Disorders: No Adverse Reaction/Blood Tranf: No (N/A) Family Medical History Hypertension 19 MOTHER No Family History of: Asthma Diabetes mellitus Respiratory disorder Seizure disorder Diabetes (Mother and father) Review of Systems Constitutional: no symptoms reported EENTM: no symptoms reported Respiratory: no symptoms reported Cardiovascular: no symptoms reported Gastrointestinal: diarrhea, nausea, vomiting Genitourinary: no symptoms reported Musculoskeletal: no symptoms reported Skin: no symptoms reported Psychiatric/Neurological: No Symptoms Reported Physical Exam Physical Exam Vital Signs Vital Signs - First Documented 12/23/21 12/23/21 03:37 15:24 Temp 36.3 Pulse 125 Resp 18 B/P (MAP) 176/96 (122) Pulse Ox 96 O2 Delivery Room Air FiO2 21 Capillary Refill : Less Than 3 Seconds Height, Weight, BMI Height: 5'10.00" Weight: 260lbs. 5.0oz. 118.347000qt; 35.61 BMI Method:Stated General Appearance: No Apparent Distress, Obese HEENT: PERRL/EOMI, Pharynx Normal Neck: Normal Inspection, Supple Respiratory: Lungs Clear, Normal Breath Sounds, No Respiratory Distress Cardiovascular: Regular Rate, Rhythm, No Edema, No Murmur Gastrointestinal: Normal Bowel Sounds, Soft; No Distended, No Guarding; Tenderness, Other (positive Xiong sign) Extremity: Normal Inspection, No Pedal Edema Neurologic/Psychiatric: Alert, Oriented x3, No Motor/Sensory Deficits, Normal Mood/Affect Skin: Normal Color, Warm/Dry Results Results/Procedures Labs Laboratory Tests 12/23/21 04:15 12/23/21 11:15 Patient resulted labs reviewed. Imaging: Reviewed Imaging Report Assessment/Plan Admission Diagnosis Acute pancreatitis Admission Status: Inpatient Order (span 2 midnights) Reason for Inpatient Admission: Pancreatitis Assessment and Plan Acute pancreatitis CT with acute interstiaial pancreatitis of the pancreatic tail, severe hepatic steatosis Lipase mildly elevated IV fludis Pain regimen NPO due to ongoing severe pain Surgery consulted Dyslipidemia Add on triglyceride level Metabolic acidosis Hyponatremia Ketonemia Elevated blood sugar Severe acidosis on arrival, improved with IV fluids Elevated blood sugar, no history of diabetes Elevated beta-hydroxybutyrate HgbA1C pending Check fecal elastase for possible chronic pancreatitis Begin low-dose Levemir Sliding scale insulin Alcohol abuse Hepatic steatosis Recommend alcohol cessation DVT prophylaxis: Lovenox Diagnosis/Problems Diagnosis/Problems (1) Pancreatitis Status: Acute Qualifiers: Chronicity: acute Pancreatitis type: unspecified pancreatitis type Acute pancreatitis complication: no infection or necrosis Qualified Codes: K85.90 - Acute pancreatitis without necrosis or infection, unspecified (2) Ketonemia Status: Acute (3) Metabolic acidosis Status: Acute (4) Fatty liver Status: Acute (5) Hyponatremia Status: Acute (6) Alcohol abuse Status: Chronic (7) Chronic diarrhea Status: Acute COLIN BUSBY MD Dec 23, 2021 17:59
[2021-12-23 19:29] VITALS: BP 158/101
[2021-12-23] MEDS: DIAZEPAM 2 MG (VALIUM) TAB PO PRN (21:16)
[2021-12-23] MEDS ORDERED: FENOFIBRATE, MICRO 67 MG (LOFIBRA) CAPSULE PO ONE (21:30)
[2021-12-23] MEDS ORDERED: FENOFIBRATE 134 MG (LOFIBRA) CAPSULE PO ONE (22:52)
[2021-12-24] VITALS (7 sets, daily range): BP systolic 121–153; BP diastolic 62–92
[2021-12-24] MEDS: LACTATED RINGERS 1,000 ML IV SCH ×3 (02:42→18:14)
[2021-12-24] MEDS: inSUlin ASPART (NovoLOG) 1 UNIT/0.01 ML (CHARGE PER UNIT) SC SCH ×4 (05:43→21:47)
[2021-12-24 07:06] LABS: BASOPHILS % (AUTO) 0 % (0-10); EOSINOPHILS % (AUTO) 0 % (0-10); HEMATOCRIT 39 % (40-54); HEMOGLOBIN 13.3 g/dL (13.3-17.7); LYMPHOCYTES % (AUTO) 14 % (12-44); MEAN CORPUSCULAR HEMOGLOBIN 33 pg (25-34); MEAN CORPUSCULAR HGB CONC 34 g/dL (32-36); MEAN CORPUSCULAR VOLUME 95 fL (80-99); MEAN PLATELET VOLUME 11.6 fL (9.0-12.2); MONOCYTES # (AUTO) 0.5 10^3/uL (0.0-1.0); MONOCYTES % (AUTO) 7 % (0-12); NEUTROPHILS # (AUTO) 5.4 10^3/uL (1.8-7.8); NEUTROPHILS % (AUTO) 78 % (42-75); PLATELET COUNT 98 10^3/uL (130-400)
[2021-12-24 07:42] LABS: ALBUMIN 3.3 GM/DL (3.2-4.5); BILIRUBIN,TOTAL 1.4 MG/DL (0.1-1.0); CALCIUM 8.9 MG/DL (8.5-10.1); CREATININE SERUM 0.81 MG/DL (0.60-1.30); POTASSIUM 3.9 MMOL/L (3.6-5.0); TOTAL PROTEIN 6.7 GM/DL (6.4-8.2)
[2021-12-24] MEDS: ENOXAPARIN 40 MG/0.4 ML (LOVENOX) SYR SC SCH (08:30)
[2021-12-24] MEDS: SENNOSIDES 8.6 MG (SENOKOT) TAB PO SCH ×2 (08:30→21:47)
[2021-12-24] MEDS: DOCUSATE SODIUM 100 MG (COLACE) CAP PO SCH ×2 (08:30→21:46)
[2021-12-24] MEDS: PANTOPRAZOLE 40 MG (PROTONIX) VIAL IV SCH (08:30)
[2021-12-24] MEDS: ACETAMINOPHEN 325 MG TABLET PO PRN ×2 (08:30→17:25)
[2021-12-24] MEDS: THIAMINE INJECTION 100 MG, FOLIC ACID INJECTION 1 MG, VITAMIN MULTI INJECTION 10 ML, MA... IV SCH ×5 (10:05)
[2021-12-24] MEDS: morphine INJ 10 MG/ML 1ML (SYR OR VIAL) IVP PRN (13:03)
--- NOTE | 2021-12-24 20:56 | Progress Note - Hospitalist ---
Subjective HPI/CC On Admission Date Seen by Provider: Dec 24, 2021 Time Seen by Provider: 10:30 Shashi Mondragon is a 36 year old male with PMH HTN, HLD, alcohol abuse, who presented with nausea and vomiting. He has not been able to hold anything down for a few days. He is having some abdominal pain that is sharp and radiates to his back. He has been unable to keep anything down and throws up shortly after eating anything. He has been dealing with ongoing GI issues for several months. He has been dealing with chronic diarrhea. He has undergone an EGD which he reports was unrevealing. He denies fevers and chills. He denies chest pain. He denies shortness of breath. He denies tobacco use. He reports drinking a few drinks a few nights a week. He reports that he used to drink more. He denies illicit drug use. Subjective/Events-last exam He is still having pain. He does not like the Dilaudid and would like to try a different pain med. Focused Exam Lactate Level 12/23/21 11:15: Lactic Acid Level 1.11 Objective Exam Vital Signs Vital Signs Date Time Temp Pulse Resp B/P (MAP) Pulse Ox O2 Delivery O2 Flow Rate FiO2 12/24/21 19:55 Room Air 12/24/21 19:25 36.5 107 20 134/88 (103) 94 12/23/21 15:24 21 Capillary Refill : Less Than 3 Seconds General Appearance: No Apparent Distress, Obese Respiratory: Lungs Clear, No Respiratory Distress Cardiovascular: No Murmur, Tachycardia Gastrointestinal: Normal Bowel Sounds, Soft, Tenderness Extremity: Normal Inspection, No Pedal Edema Neurologic/Psychiatric: Alert, Normal Mood/Affect Results/Procedures Lab Laboratory Tests 12/24/21 06:04 Patient resulted labs reviewed. Imaging: Reviewed Imaging Report Assessment/Plan Assessment and Plan Assess & Plan/Chief Complaint Acute pancreatitis Hypertriglyceridemia CT with acute interstiaial pancreatitis of the pancreatic tail, severe hepatic steatosis Lipase mildly elevated Triglycerides coming down Continue statin and fibrates IV fluids Pain regimen Advance to clears Surgery consulted Hyponatremia Hyperglycemia Severe acidosis on arrival, improved with IV fluids Elevated blood sugar, no history of diabetes Elevated beta-hydroxybutyrate HgbA1C pending Continue low-dose Levemir Sliding scale insulin Alcohol abuse Hepatic steatosis Recommend alcohol cessation DVT prophylaxis: Lovenox Metabolic acidosis, resolved Ketonemia, resolved Diagnosis/Problems Diagnosis/Problems (1) Pancreatitis Status: Acute Qualifiers: Chronicity: acute Pancreatitis type: unspecified pancreatitis type Acute pancreatitis complication: no infection or necrosis Qualified Codes: K85.90 - Acute pancreatitis without necrosis or infection, unspecified (2) Ketonemia Status: Acute (3) Metabolic acidosis Status: Acute (4) Fatty liver Status: Acute (5) Hyponatremia Status: Acute (6) Alcohol abuse Status: Chronic (7) Chronic diarrhea Status: Acute COLIN BUSBY MD Dec 24, 2021 20:56
[2021-12-24] MEDS ORDERED: FENOFIBRATE 134 MG (LOFIBRA) CAPSULE PO SCH (21:00)
[2021-12-24] MEDS: DIAZEPAM 2 MG (VALIUM) TAB PO PRN (21:46)
[2021-12-25] MEDS: LACTATED RINGERS 1,000 ML IV SCH ×3 (00:22→10:39)
[2021-12-25 03:40] VITALS: BP 148/72
[2021-12-25 05:59] LABS: BASOPHILS % (AUTO) 0 % (0-10); EOSINOPHILS # (AUTO) 0.1 10^3/uL (0.0-0.3); EOSINOPHILS % (AUTO) 1 % (0-10); HEMATOCRIT 36 % (40-54); HEMOGLOBIN 11.9 g/dL (13.3-17.7); LYMPHOCYTES # (AUTO) 1.2 10^3/uL (1.0-4.0); LYMPHOCYTES % (AUTO) 15 % (12-44); MEAN CORPUSCULAR HEMOGLOBIN 32 pg (25-34); MEAN CORPUSCULAR HGB CONC 33 g/dL (32-36); MEAN CORPUSCULAR VOLUME 96 fL (80-99); MEAN PLATELET VOLUME 11.8 fL (9.0-12.2); MONOCYTES # (AUTO) 0.7 10^3/uL (0.0-1.0); MONOCYTES % (AUTO) 8 % (0-12); NEUTROPHILS # (AUTO) 6.1 10^3/uL (1.8-7.8); NEUTROPHILS % (AUTO) 76 % (42-75); PLATELET COUNT 87 10^3/uL (130-400); WHITE BLOOD COUNT 8.2 10^3/uL (4.3-11.0)
[2021-12-25] MEDS: inSUlin ASPART (NovoLOG) 1 UNIT/0.01 ML (CHARGE PER UNIT) SC SCH ×2 (06:08→10:38)
[2021-12-25 06:27] LABS: ALBUMIN 3.2 GM/DL (3.2-4.5); POTASSIUM 3.7 MMOL/L (3.6-5.0)
[2021-12-25 06:28] LABS: CALCIUM 8.8 MG/DL (8.5-10.1)
[2021-12-25 06:29] LABS: TOTAL PROTEIN 6.5 GM/DL (6.4-8.2)
[2021-12-25 06:31] LABS: BILIRUBIN,TOTAL 1.2 MG/DL (0.1-1.0)
[2021-12-25 06:33] LABS: CREATININE SERUM 0.73 MG/DL (0.60-1.30)
[2021-12-25] MEDS: morphine INJ 10 MG/ML 1ML (SYR OR VIAL) IVP PRN (06:36)
[2021-12-25 08:00] VITALS: BP 153/92
[2021-12-25] MEDS: PANTOPRAZOLE 40 MG (PROTONIX) VIAL IV SCH (08:43)
[2021-12-25] MEDS: ENOXAPARIN 40 MG/0.4 ML (LOVENOX) SYR SC SCH (08:43)
[2021-12-25] MEDS: DOCUSATE SODIUM 100 MG (COLACE) CAP PO SCH (08:43)
[2021-12-25] MEDS: SENNOSIDES 8.6 MG (SENOKOT) TAB PO SCH (08:44)
[2021-12-25] MEDS: THIAMINE INJECTION 100 MG, FOLIC ACID INJECTION 1 MG, VITAMIN MULTI INJECTION 10 ML, MA... IV SCH ×5 (08:49)
[2021-12-25 11:09] VITALS: BP 144/91
[2021-12-25] MEDS ORDERED: OXYC1TAB11 PO (11:11)
[2021-12-25] MEDS ORDERED: FENO134C21 PO (11:11)
[2021-12-25] MEDS ORDERED: ROSU40TA23 PO (11:11)
--- NOTE | 2021-12-25 12:03 | Discharge Summary ---
Discharge Summary Hospital Course Problems/Dx: (1) Pancreatitis Status: Acute Qualifiers: Qualified Codes: K85.90 - Acute pancreatitis without necrosis or infection, unspecified (2) Hypertriglyceridemia Status: Acute (3) Ketonemia Status: Acute (4) Metabolic acidosis Status: Acute (5) Fatty liver Status: Acute (6) Hyponatremia Status: Acute (7) Alcohol abuse Status: Chronic (8) Chronic diarrhea Status: Acute Hospital Course Date of Admission: Dec 23, 2021 at 06:27 Admission Diagnosis : Acute pancreatitis Family Physician/Provider: Dyan Merida Date of Discharge: 12/25/21 Discharge Diagnosis: Acute pancreatitis due to hypertriglyceridemia and alcohol abuse Hospital Course: Shashi Mondragon is a 36 year old male who presented with abdominal pain, nausea, and vomiting, and was admitted with acute pancreatitis. CT revealed pancreatitis of the pancreatic tail and severe hepatic steatosis. He was started on IV fluids and pain meds. He was made NPO. His triglycerides were nearly 4000. He was given insulin. He was continued on statin and started on fenofibrate. His triglycerides trended down to 600. He was encouraged to discontinue alcohol use completely. His pain improved. He was given a small prescription of oxycodone for severe pain if needed. He needs to call Chel[facility] office on Monday to set up follow up. He was discharged home in stable condition. Labs and Pending Lab Test: Laboratory Tests 12/24/21 15:50: Glucometer 141H 12/24/21 20:14: Glucometer 175H 12/25/21 05:17: White Blood Count 8.2, Red Blood Count 3.75L, Hemoglobin 11.9L, Hematocrit 36L, Mean Corpuscular Volume 96, Mean Corpuscular Hemoglobin 32, Mean Corpuscular Hemoglobin Concent 33, Red Cell Distribution Width 12.7, Platelet Count 87L, Mean Platelet Volume 11.8, Immature Granulocyte % (Auto) 1, Neutrophils (%) (Auto) 76H, Lymphocytes (%) (Auto) 15, Monocytes (%) (Auto) 8, Eosinophils (%) (Auto) 1, Basophils (%) (Auto) 0, Neutrophils # (Auto) 6.1, Lymphocytes # (Auto) 1.2, Monocytes # (Auto) 0.7, Eosinophils # (Auto) 0.1, Basophils # (Auto) 0.0, Immature Granulocyte # (Auto) 0.0, Sodium Level 132L, Potassium Level 3.7, Chloride Level 98, Carbon Dioxide Level 23, Anion Gap 11, Blood Urea Nitrogen 4L , Creatinine 0.73, Estimat Glomerular Filtration Rate 120, BUN/Creatinine Ratio 5, Glucose Level 111H, Calcium Level 8.8, Corrected Calcium 9.4, Total Bilirubin 1.2H, Aspartate Amino Transf (AST/SGOT) 52H, Alanine Aminotransferase (ALT/SGPT) 42, Alkaline Phosphatase 80, Total Protein 6.5, Albumin 3.2, Triglycerides Level 673#H 12/25/21 05:24: Glucometer 116H 12/25/21 10:33: Glucometer 155H Home Meds Active Oxycodone-Acetaminophen 5-325 (Oxycodone HCl/Acetaminophen) 5 Mg-325 Mg Tablet 1 Each PO Q4H PRN MDD 6 5 Days Fenofibrate (Fenofibrate,Micronized) 134 Mg Capsule 134 Mg PO HS 30 Days Rosuvastatin Calcium 40 Mg Tablet 40 Mg PO HS 30 Days Reported Pantoprazole Sodium 40 Mg Tablet.dr 40 Mg PO DAILY Vascepa (Icosapent Ethyl) 1 Gram Capsule 2 Gm PO BID TAKES 2 (1GM) CAPS Lisinopril-Hctz 20-12.5 mg Tab (Lisinopril/Hydrochlorothiazide) 20 Mg-12.5 Mg Tablet 1 Each PO DAILY Assessment/Pt Instructions See instructions Discharge Planning: >30 minutes discharge planning Discharge Instructions Discharge Diet: Low Fat/Low Cholesterol Activity as Tolerated: Yes Discharge Physical Examination Vital Signs Vital Signs Date Time Temp Pulse Resp B/P (MAP) Pulse Ox O2 Delivery O2 Flow Rate FiO2 12/25/21 11:09 36.2 96 20 144/91 (108) 96 Room Air 12/25/21 08:59 0.00 12/23/21 15:24 21 General Appearance: No Apparent Distress, Obese Respiratory: Lungs Clear, No Respiratory Distress Cardiovascular: Regular Rate, Rhythm, No Murmur Gastrointestinal: Normal Bowel Sounds, Soft Extremity: Normal Inspection, No Pedal Edema Skin: Normal Color, Warm/Dry Neurologic/Psychiatric: Alert, Normal Mood/Affect Allergies: Coded Allergies: aspirin (Verified Allergy, Severe, ANAPHYLAXIS, 10/09/18) Penicillins (Verified Allergy, Mild, HIVES, 10/09/18) Discharge Summary Date of Admission Dec 23, 2021 at 06:27 Date of Discharge Discharge Date: Dec 25, 2021 Discharge Time: 12:00 Admission Diagnosis Acute pancreatitis Discharge Diagnosis Acute pancreatitis Hypertriglyceridemia Alcohol abuse Hepatic steatosis (1) Pancreatitis Status: Acute Qualifiers: Qualified Codes: K85.90 - Acute pancreatitis without necrosis or infection, unspecified (2) Hypertriglyceridemia Status: Acute (3) Ketonemia Status: Acute (4) Metabolic acidosis Status: Acute (5) Fatty liver Status: Acute (6) Hyponatremia Status: Acute (7) Alcohol abuse Status: Chronic (8) Chronic diarrhea Status: Acute COLIN BUSBY MD Dec 25, 2021 12:02
[2021-12-25 14:01] VITALS: BP 144/91
== END 2021-12-25 14:05 | disposition home or self-care (01) | DRG 439 ==
LOC: EDUNIT# 03:18 → ER 03:21 → 4TH 06:27
PROVIDERS: ADMIT Internal Medicine; ATTEND Internal Medicine
DX: K85.20 Alcohol induced acute pancreatitis without necrosis or infection (principal); E87.1 Hypo-osmolality and hyponatremia; E87.2 Acidosis; K86.1 Other chronic pancreatitis; E78.1 Pure hyperglyceridemia; K76.0 Fatty (change of) liver, not elsewhere classified; F10.10 Alcohol abuse, uncomplicated; K52.9 Noninfective gastroenteritis and colitis, unspecified; I10 Essential (primary) hypertension; E78.5 Hyperlipidemia, unspecified; R73.9 Hyperglycemia, unspecified; K21.9 Gastro-esophageal reflux disease without esophagitis; M19.90 Unspecified osteoarthritis, unspecified site; Z20.822 Contact with and (suspected) exposure to COVID-19
CPT/HCPCS: 36415; 74177; 80048; 80053; 80306; 80320; 81000; 82010; 82150; 82805; 82947; 83036; 83605; 83690; 83735; 84478; 85025; 87636; 94760

== ENCOUNTER 2022-10-04 08:04 | Emergency (ER) | payer OTHER ==
[~2022-10-04] VITALS: Ht 180 cm; Wt 117.0 kg
[~2022-10-04 08:04] MED LIST changes: +FENO134C21 PO; +ICOS1CAP PO; +LISI1TAB46 PO; +OXYC1TAB11 PO; +PANT40TA52 PO; +ROSU20TA32 PO; +ROSU40TA23 PO
[2022-10-04] MEDS ORDERED: NS IV 1000 ML 1,000 ML IV STA (08:22)
[2022-10-04] MEDS ORDERED: FAMOTIDINE 20 MG (PEPCID) TABLET PO STA (08:22)
[2022-10-04] MEDS ORDERED: morphine INJ 10 MG/ML 1ML (SYR OR VIAL) IVP STA (08:22)
--- NOTE | 2022-10-04 08:26 | ED Abdominal Pain ---
General Chief Complaint: Abdominal/GI Problems Stated Complaint: NAUSEA | VOMITING | ABD PAIN Nursing Triage Note: AMB TO RM 7 PT CO OF ABD PAIN L UPPER ABD. PT CO OF N/V/D FOR APPROX 3 DAYS. PT HAS HX OF PANCREATISIS. Source of Information: Patient, Old Records Exam Limitations: No Limitations History of Present Illness Date Seen by Provider: Oct 04, 2022 Time Seen by Provider: 08:06 Initial Comments 37-year-old male with past medical history of rheumatoid arthritis, hypertension, hyperlipidemia, and previous pancreatitis secondary to hypertriglyceridemia coming in due to upper abdominal pain. Started late last week, became worse over the weekend, now associated with nonbloody nonbilious emesis as well as nonbloody diarrhea. He is unsure if he has been around anybody sick. He last ate last night, had dinner, vomited it up. States he is having difficulty keeping fluids down. Last vomited this morning. He has had Tylenol for pain which has not really helped much. He states this feels similar to his prior episode of pancreatitis, although he believes his triglycerides have been under control now. He did drink a couple drinks of alcohol over the weekend, but it was very minimal. He denies any history of gallbladder disease that he knows of. Otherwise denying any other acute complaints. Allergies and Home Medications Allergies Coded Allergies: aspirin (Verified Allergy, Severe, ANAPHYLAXIS, 10/09/18) Penicillins (Verified Allergy, Mild, HIVES, 10/09/18) Patient Home Medication List Home Medication List Reviewed: Yes Fenofibrate,Micronized (Fenofibrate) 134 Mg Capsule, 134 MG PO HS Prescribed by: COLIN BUSBY on 12/25/21 1111 Icosapent Ethyl (Vascepa) 1 Gram Capsule, 2 GM PO BID, (Reported) Entered as Reported by: LUCA SHIN on 12/23/21 1414 Lisinopril/Hydrochlorothiazide (Lisinopril-Hctz 20-12.5 mg Tab) 20 Mg-12.5 Mg Tablet, 1 EACH PO DAILY, (Reported) Entered as Reported by: LUCA SHIN on 12/23/21 1414 Ondansetron (Ondansetron Odt) 4 Mg Tab.rapdis, 4 MG SL Q6H PRN for NAUSE A/VOMITING Prescribed by: ASHLEY POON on 10/04/22 1000 Oxycodone HCl/Acetaminophen (Oxycodone-Acetaminophen 5-325) 5 Mg-325 Mg Tablet, 1 EACH PO Q4H PRN for PAIN-SEVERE Prescribed by: COLIN BUSBY on 12/25/21 1111 Pantoprazole Sodium (Pantoprazole Sodium) 40 Mg Tablet.dr, 40 MG PO DAILY, (Reported) Entered as Reported by: LUCA SHIN on 12/23/21 1416 Rosuvastatin Calcium (Rosuvastatin Calcium) 40 Mg Tablet, 40 MG PO HS Prescribed by: COLIN BUSBY on 12/25/21 1111 Review of Systems Review of Systems Constitutional: chills EENTM: No Symptoms Reported Respiratory: No Symptoms Reported Cardiovascular: No Symptoms Reported Gastrointestinal: See HPI Genitourinary: No Symptoms Reported Musculoskeletal: no symptoms reported Skin: no symptoms reported Psychiatric/Neurological: No Symptoms Reported Endocrine: No Symptoms Reported Hematologic/Lymphatic: No Symptoms Reported Past Awbxfre-Zebdod-Hzsptb Hx Patient Social History Tobacco Use?: No Substance use?: No Alcohol Use?: Yes Alcohol type: Beer Alcohol Frequency: Rarely Pt feels they are or have been: No Immunizations Up To Date Tetanus Booster (TDap): More than 5yrs Influenza Vaccine Up-to-Date: No; Not Current Seasonal Allergies Seasonal Allergies: Yes Past Medical History Surgery/Hospitalization HX: Hypertension, high cholestoral, PANCREATITIS Surgeries: Yes Abdominal, Orthopedic Respiratory: No Cardiac: Yes High Cholesterol, Hypertension Neurological: No Reproductive Disorders: No Sexually Transmitted Disease: No HIV/AIDS: No Genitourinary: No Gastrointestinal: Yes ([employer] INFANT--S/P SURGERY; CHRONIC N/V/D/ABD PAIN ) Gastroesophageal Reflux, Pancreatitis Musculoskeletal: Yes Arthritis Endocrine: No HEENT: No Loss of Vision: Denies Hearing Impairment: Denies Cancer: No Psychosocial: No Integumentary: No Blood Disorders: No Adverse Reaction/Blood Tranf: No (N/A) Family Medical History Hypertension 19 MOTHER No Family History of: Asthma Diabetes mellitus Respiratory disorder Seizure disorder Diabetes, Hypertension Physical Exam Vital Signs Vital Signs - First Documented 10/04/22 08:13 Temp 35.8 Pulse 75 Resp 18 B/P (MAP) 147/105 (119) Pulse Ox 98 Capillary Refill : Less Than 3 Seconds Height/Weight/BMI Height: 5'10.00" Weight: 260lbs. 5.0oz. 118.437668lg; 36.00 BMI Method:Stated General Appearance: WD/WN, no apparent distress HEENT: PERRL/EOMI, normal ENT inspection, pharynx normal Neck: non-tender, full range of motion, supple, normal inspection Respiratory: chest non-tender, lungs clear, normal breath sounds, no respiratory distress, no accessory muscle use Cardiovascular: regular rate, rhythm, no edema, no murmur Gastrointestinal: normal bowel sounds, soft; No distended, No guarding, No rebound; tenderness Extremities: normal range of motion, non-tender, normal inspection, no pedal edema, no calf tenderness, normal capillary refill Back: normal inspection, no CVA tenderness, no vertebral tenderness Neurologic/Psychiatric: no motor/sensory deficits, alert, normal mood/affect Skin: normal color, warm/dry Progress/Results/Core Measures Results/Orders Lab Results Laboratory Tests Test 10/04/22 08:30 10/04/22 08:40 Range/Units Sodium Level 139 135-145 MMOL/L Potassium Level 4.1 3.6-5.0 MMOL/L Chloride Level 107 98-107 MMOL/L Carbon Dioxide Level 18 L 21-32 MMOL/L Anion Gap 14 5-14 MMOL/L Blood Urea Nitrogen 14 7-18 MG/DL Creatinine 0.85 0.60-1.30 MG/DL Estimat Glomerular Filtration Rate 114 BUN/Creatinine Ratio 16 Glucose Level 128 H 70-105 MG/DL Calcium Level 9.3 8.5-10.1 MG/DL Corrected Calcium 9.1 8.5-10.1 MG/DL Magnesium Level 1.9 1.6-2.4 MG/DL Total Bilirubin 0.6 0.1-1.0 MG/DL Aspartate Amino Transf (AST/SGOT) 31 5-34 U/L Alanine Aminotransferase (ALT/SGPT) 42 0-55 U/L Alkaline Phosphatase 69 40-136 U/L C-Reactive Protein High Sensitivity 0.05 0.00-0.50 MG/DL Total Protein 7.2 6.4-8.2 GM/DL Albumin 4.2 3.2-4.5 GM/DL Triglycerides Level 399 H <150 MG/DL Lipase 22 8-78 U/L White Blood Count 4.8 4.3-11.0 10^3/uL Red Blood Count 5.04 4.30-5.52 10^6/uL Hemoglobin 15.5 13.3-17.7 g/dL Hematocrit 44 40-54 % Mean Corpuscular Volume 88 80-99 fL Mean Corpuscular Hemoglobin 31 25-34 pg Mean Corpuscular Hemoglobin Concent 35 32-36 g/dL Red Cell Distribution Width 11.9 10.0-14.5 % Platelet Count 179 130-400 10^3/uL Mean Platelet Volume 11.2 9.0-12.2 fL Immature Granulocyte % (Auto) 0 % Neutrophils (%) (Auto) 55 42-75 % Lymphocytes (%) (Auto) 31 12-44 % Monocytes (%) (Auto) 11 0-12 % Eosinophils (%) (Auto) 2 0-10 % Basophils (%) (Auto) 1 0-10 % Neutrophils # (Auto) 2.6 1.8-7.8 10^3/uL Lymphocytes # (Auto) 1.5 1.0-4.0 10^3/uL Monocytes # (Auto) 0.5 0.0-1.0 10^3/uL Eosinophils # (Auto) 0.1 0.0-0.3 10^3/uL Basophils # (Auto) 0.0 0.0-0.1 10^3/uL Immature Granulocyte # (Auto) 0.0 0.0-0.1 10^3/uL Urine Color YELLOW Urine Clarity CLEAR Urine pH 7.0 5-9 Urine Specific [place] 1.015 L 1.016-1.022 Urine Protein NEGATIVE NEGATIVE Urine Glucose (UA) NEGATIVE NEGATIVE Urine Ketones NEGATIVE NEGATIVE Urine Nitrite NEGATIVE NEGATIVE Urine Bilirubin NEGATIVE NEGATIVE Urine Urobilinogen 0.2 < = 1.0 MG/DL Urine Leukocyte Esterase NEGATIVE NEGATIVE Urine RBC (Auto) NEGATIVE NEGATIVE Urine RBC NONE /HPF Urine WBC RARE /HPF Urine Squamous Epithelial Cells 0-2 /HPF Urine Crystals PRESENT H /LPF Urine Amorphous Sediment FEW RAHUL PHOSPHATE H /LPF Urine Bacteria TRACE /HPF Urine Casts NONE /LPF Urine Mucus SMALL H /LPF Urine Culture Indicated NO My Orders Orders - ASHLEY POON MD Cbc With Automated Diff (10/04/22 08:22) Comprehensive Metabolic Panel (10/04/22 08:22) Hs C Reactive Protein (10/04/22 08:22) Lipase (10/04/22 08:22) Magnesium (10/04/22 08:22) Ua Culture If Indicated (10/04/22 08:22) Ct Abdomen/Pelvis W (10/04/22 08:22) Ed Iv/Invasive Line Start (10/04/22 08:22) Ondansetron Injection (Zofran Injectio (10/04/22 08:30) Ns Iv 1000 Ml (Sodium Chloride 0.9%) (10/04/22 08:22) Triglycerides (10/04/22 08:22) Ketorolac Injection (Toradol Injection) (10/04/22 08:30) Morphine Injection (Morphine Injection (10/04/22 08:22) Famotidine Tablet (Pepcid Tablet) (10/04/22 08:22) Iohexol Injection (Omnipaque 350 Mg/Ml 1 (10/04/22 09:30) Received Contrast (Hold Metformin- Contr (10/04/22 09:30) Ns (Ivpb) (Sodium Chloride 0.9% Ivpb Bag (10/04/22 09:30) Famotidine Tablet (Pepcid Tablet) (10/04/22 09:39) Medications Given in ED Current Medications Medications Dose Ordered Sig/Veena Route Start Time Stop Time Status Last Admin Dose Admin Iohexol 100 ml ONCE ONCE IV 10/04/22 09:30 10/04/22 09:31 DC 10/04/22 09:26 100 ML Ketorolac Tromethamine 15 mg ONCE ONCE IVP 10/04/22 08:30 10/04/22 09:15 DC 10/04/22 08:34 15 MG Ondansetron HCl 4 mg ONCE ONCE IVP 10/04/22 08:30 10/04/22 09:15 DC 10/04/22 08:34 4 MG Sodium Chloride 100 ml ONCE ONCE IV 10/04/22 09:30 10/04/22 09:31 DC 10/04/22 09:26 80 ML Vital Signs/I&O 10/04/22 08:13 Temp 35.8 Pulse 75 Resp 18 B/P (MAP) 147/105 (119) Pulse Ox 98 Blood Pressure Mean: 119 Progress Progress Note : Progress Note 37-year-old male with above history coming in due to epigastric pain, nausea, vomiting. ABCs were intact and vitals were stable on presentation. Physical exam with epigastric tenderness but no signs of peritonitis. An IV was placed and basic labs were obtained including triglycerides which were elevated at 399. His white blood cell count is reassuring, lipase normal. CT abdomen pelvis ordered to assess for pancreatitis versus gallbladder disease versus some other etiology for his pain. He was given IV morphine as well as Toradol for pain control. Given Zofran as well as IV fluids. On my interpretation of the CT, I do not see any obvious free air. Radiologist read negative for any acute findings. On reassessment, his pain has significantly improved. Given there are no inflammatory changes of pancreatitis, and his lipase is normal, this makes it ruled out. Could be gastritis. We will send him with prescriptions for nausea medications as well as antacids. I will have him follow-up with his regular doctor as an outpatient. I believe he is otherwise stable for discharge with outpatient follow-up. He was sent home with strict return precautions. Diagnostic Imaging Diagonstic Imaging: CT (abd/pelvis) Comments NAME: YOLETTE GOINS [facility] REC#: [id number] PT STATUS: REG ER : 1985 PHYSICIAN: ASHLEY POON MD ADMIT DATE: 10/04/22/ER Signed Date of Exam:10/04/22 CT ABDOMEN/PELVIS W CT ABDOMEN/PELVIS W TECHNIQUE: Multiple contiguous axial images were obtained through the abdomen and pelvis after administration of intravenous contrast. All CT scans use one or more of the following dose optimizing techniques: automated exposure control, MA and/or KvP adjustment based on patient size and exam type or iterative reconstruction. INDICATION: Upper abdominal pain with nausea and vomiting COMPARISON: None available. FINDINGS: Lower chest: The lung bases are clear. No pericardial or pleural effusion. Peritoneum: No free intraperitoneal air or fluid. Liver and biliary system: The liver is normal. The gallbladder is normal. No biliary duct dilation. Spleen and Pancreas: Spleen is normal. The pancreas enhances normally without mass lesion or peripancreatic inflammatory changes. Adrenals: Normal. tract: The kidneys enhance normally without suspicious mass or obstruction. Urinary bladder is distended without wall thickening. Prostate is not enlarged. GI tract: Stomach is decompressed. No bowel obstruction. No pericolonic inflammatory changes. Normal appendix. Vasculature and Lymph nodes: Normal caliber aorta. No abdominal or pelvic lymphadenopathy. Musculoskeletal: No concerning osseous lesion. IMPRESSION: 1. No acute obstructive or inflammatory process. Dictated by: Dictated on workstation # [id number] Dict: 10/04/2244 Trans: 10/04/22951 [facility] [id number] Interpreted by: ENIO EAGLE MD Electronically signed by: ENIO EAGLE MD 10/04/2252 Departure Impression Primary Impression: Gastritis Qualified Codes: K29.00 - Acute gastritis without bleeding Additional Impression: Vomiting and diarrhea Disposition: HOME, SELF-CARE Condition: Stable Departure-Patient Inst. Decision time for Depature: 10:05 Referrals: MENA HORTON (PCP/Family) Primary Care Physician Patient Instructions: Gastritis ED, Nausea and Vomiting, Adult ED Add. Discharge Instructions: Nausea medicines will be sent to your pharmacy. Your CT imaging and your labs are negative for pancreatitis, although your triglycerides were 399 today. We would expect your vomiting and diarrhea to improve within the next 3 days. If they do not improve, please follow back up with your regular doctor. Medications for acid and abdominal pain were also sent to your pharmacy. Scripts Pantoprazole Sodium (Pantoprazole Sodium) 40 Mg Tablet.dr 40 MG PO DAILY for 30 Days, #30 TAB Prov: ASHLEY POON MD 10/04/22 Ondansetron (Ondansetron Odt) 4 Mg Tab.rapdis 4 MG SL Q6H PRN for NAUSEA/VOMITING for 5 Days, #20 TAB Prov: ASHLEY POON MD 10/04/22 Work/School Note: Work Release Form Date Seen in the Emergency Department: Oct 04, 2022 Return to Work: Oct 06, 2022 Restrictions: Return-No Vomiting(24hrs) ASHLEY POON MD Oct 04, 2022 08:26
[2022-10-04] MEDS ORDERED: ONDANSETRON 4 MG/2 ML (SDV) Z0FRAN IVP ONE (08:30)
[2022-10-04] MEDS ORDERED: KETOROLAC 30 MG/ML VIAL IVP ONE (08:30)
[2022-10-04 09:17] LABS: BASOPHILS % (AUTO) 1 % (0-10); EOSINOPHILS # (AUTO) 0.1 10^3/uL (0.0-0.3); EOSINOPHILS % (AUTO) 2 % (0-10); HEMATOCRIT 44 % (40-54); HEMOGLOBIN 15.5 g/dL (13.3-17.7); LYMPHOCYTES # (AUTO) 1.5 10^3/uL (1.0-4.0); LYMPHOCYTES % (AUTO) 31 % (12-44); MEAN CORPUSCULAR HEMOGLOBIN 31 pg (25-34); MEAN CORPUSCULAR HGB CONC 35 g/dL (32-36); MEAN CORPUSCULAR VOLUME 88 fL (80-99); MEAN PLATELET VOLUME 11.2 fL (9.0-12.2); MONOCYTES # (AUTO) 0.5 10^3/uL (0.0-1.0); MONOCYTES % (AUTO) 11 % (0-12); NEUTROPHILS # (AUTO) 2.6 10^3/uL (1.8-7.8); NEUTROPHILS % (AUTO) 55 % (42-75); PLATELET COUNT 179 10^3/uL (130-400); WHITE BLOOD COUNT 4.8 10^3/uL (4.3-11.0)
[2022-10-04 09:20] LABS: ALBUMIN 4.2 GM/DL (3.2-4.5); BILIRUBIN,TOTAL 0.6 MG/DL (0.1-1.0); CALCIUM 9.3 MG/DL (8.5-10.1); CREATININE SERUM 0.85 MG/DL (0.60-1.30); MAGNESIUM 1.9 MG/DL (1.6-2.4); POTASSIUM 4.1 MMOL/L (3.6-5.0); TOTAL PROTEIN 7.2 GM/DL (6.4-8.2)
[2022-10-04] MEDS ORDERED: HOLD METFORMIN - RECEIVED CONTRAST 20 ML VIAL IV SCH (09:30)
[2022-10-04] MEDS ORDERED: IOHEXOL 350 MG/ML 100 ML (OMNIPAQUE 350) VIAL IV ONE (09:30)
[2022-10-04] MEDS ORDERED: NS 100 ML (IVPB) BAG IV ONE (09:30)
[2022-10-04 09:38] LABS: BILIRUBIN,URINE NEGATIVE (NEGATIVE); CLARITY,URINE CLEAR; COLOR,URINE YELLOW; GLUCOSE, URINE (UA) NEGATIVE (NEGATIVE); KETONES,URINE NEGATIVE (NEGATIVE); LEUKOCYTE ESTERASE ,URINE NEGATIVE (NEGATIVE); NITRITE,URINE NEGATIVE (NEGATIVE); PROTEIN,URINE NEGATIVE (NEGATIVE)
[2022-10-04 09:39] LABS: AMORPHOUS SEDIMENT,UR FEW AMOR PHOSPHATE /LPF; BACTERIA,URINE TRACE /HPF; SQUAMOUS EPITHELIAL CELL,UR 0-2 /HPF; WBC,URINE RARE /HPF
[2022-10-04] MEDS ORDERED: FAMOTIDINE 20 MG (PEPCID) TABLET ONE (09:39)
--- NOTE | 2022-10-04 09:54 | Diagnostic Imaging Report ---
CT ABDOMEN/PELVIS W TECHNIQUE: Multiple contiguous axial images were obtained through the abdomen and pelvis after administration of intravenous contrast. All CT scans use one or more of the following dose optimizing techniques: automated exposure control, MA and/or KvP adjustment based on patient size and exam type or iterative reconstruction. INDICATION: Upper abdominal pain with nausea and vomiting COMPARISON: None available. FINDINGS: Lower chest: The lung bases are clear. No pericardial or pleural effusion. Peritoneum: No free intraperitoneal air or fluid. Liver and biliary system: The liver is normal. The gallbladder is normal. No biliary duct dilation. Spleen and Pancreas: Spleen is normal. The pancreas enhances normally without mass lesion or peripancreatic inflammatory changes. Adrenals: Normal. tract: The kidneys enhance normally without suspicious mass or obstruction. Urinary bladder is distended without wall thickening. Prostate is not enlarged. GI tract: Stomach is decompressed. No bowel obstruction. No pericolonic inflammatory changes. Normal appendix. Vasculature and Lymph nodes: Normal caliber aorta. No abdominal or pelvic lymphadenopathy. Musculoskeletal: No concerning osseous lesion. IMPRESSION: 1. No acute obstructive or inflammatory process. Dictated by: Dictated on workstation # [id number]
[2022-10-04] MEDS ORDERED: ONDA4TAB11 SL (10:00)
[2022-10-04] MEDS ORDERED: PANT40TA52 PO (10:01)
[2022-10-04 10:05] VITALS: BP 140/88
== END 2022-10-04 10:05 | disposition home or self-care (01) ==
LOC: EDUNIT# 08:04 → ER 08:06
DX: K29.70 Gastritis, unspecified, without bleeding (principal)
CPT/HCPCS: 36415; 74177; 80053; 81000; 83690; 83735; 84478; 85025; 86141

== ENCOUNTER 2023-05-19 15:45 | Inpatient (IN) | payer OTHER ==
[~2023-05-19] VITALS: Ht 180.3 cm; Wt 125.0 kg
[~2023-05-19 15:45] MED LIST changes: +ONDA4TAB11 SL; -ROSU20TA32 PO; +ROSU20TA73 PO
[2023-05-19] MEDS ORDERED: FAMOTIDINE INJ 20MG/2ML VIAL ONE ×2 (15:51→15:53)
[2023-05-19] MEDS ORDERED: methylPREDNISolone INJ 125 MG VIAL ONE (15:51)
[2023-05-19] MEDS ORDERED: diphenhydrAMINE INJ 50 MG/ML VIAL ONE (15:51)
[2023-05-19] MEDS ORDERED: EPINEPHrine (ADULT) 0.3 MG/0.3 ML auto-inject IM ONE ×2 (16:00→16:15)
[2023-05-19] MEDS ORDERED: FAMOTIDINE INJ 20MG/2ML VIAL IVP ONE (16:00)
[2023-05-19] MEDS ORDERED: methylPREDNISolone INJ 125 MG VIAL IVP ONE (16:00)
--- NOTE | 2023-05-19 16:01 | ED Integumentary General ---
General Chief Complaint: Allergic Reaction Stated Complaint: ALLERGIC REACTION Source: patient Exam Limitations: no limitations History of Present Illness Date Seen by Provider: May 19, 2023 Time Seen by Provider: 15:56 Initial Comments Patient is a 37-year-old male with a history of RA. Patient injected a Orencia injection around 7 AM. States he developed a localized reaction around the injection site as of his right thigh. He has been doing these injections once a week for 6 months. Did have a similar localized reaction 2 weeks ago. This afternoon started developing some discomfort in his throat. This started to become worse difficulty swallowing and talking. Patient took 100 mg of Benadryl about 1 hour before arrival but had no improvement. Denies of any diffuse itching, wheezing, chest pain, abdominal pain. Does report blurry vision. Patient denies any nausea vomiting diarrhea, chest pain. Allergies and Home Medications Allergies Coded Allergies: aspirin (Verified Allergy, Severe, ANAPHYLAXIS, 10/09/18) Penicillins (Verified Allergy, Mild, HIVES, 10/09/18) Patient Home Medication List Home Medication List Reviewed: Yes Abatacept (Orencia Clickject) 125 Mg/Ml Auto.injct, 125 MG SQ WEEK, (Reported) Entered as Reported by: LOBITO NOGUEIRA on 05/20/23 104 Last Action: New Order Celecoxib (Celecoxib) 200 Mg Capsule, 200 MG PO DAILY, (Reported) Entered as Reported by: LOBITO NOGUEIRA on 05/20/23 104 Last Action: New Order Fenofibrate Nanocrystallized (Fenofibrate) 48 Mg Tablet, 48 MG PO DAILY, ( Reported) Entered as Reported by: LOBITO NOGUEIRA on 05/20/23 104 Last Action: New Order Lisinopril/Hydrochlorothiazide (Lisinopril-Hctz 20-12.5 mg Tab) 20 Mg-12.5 Mg Tablet, 1 EACH PO DAILY, (Reported) Entered as Reported by: LUCA SHIN on 12/23/21 1414 Last Action: Reviewed Ondansetron (Ondansetron Odt) 4 Mg Tab.rapdis, 4 MG SL Q6H PRN for NAUSEA/VOMITING Prescribed by: ASHLEY POON on 10/04/22 1000 Last Action: Reviewed Rosuvastatin Calcium (Rosuvastatin Calcium) 20 Mg Tablet, 20 MG PO DAILY, (Reported) Entered as Reported by: LOBITO NOGUEIRA on 05/20/23 1049 Last Action: New Order Discontinued Medications Fenofibrate,Micronized (Fenofibrate) 134 Mg Capsule, 134 MG PO HS Discontinued Reason: New Order Prescribed by: COLIN BUSBY on 12/25/21 1111 Last Action: Discontinued Icosapent Ethyl (Vascepa) 1 Gram Capsule, 2 GM PO BID, (Reported) Discontinued Reason: No Longer Taking Entered as Reported by: LUCA SHIN on 12/23/21 1414 Last Action: Discontinued Oxycodone HCl/Acetaminophen (Oxycodone-Acetaminophen 5-325) 5 Mg-325 Mg Tablet, 1 EACH PO Q4H PRN for PAIN-SEVERE Discontinued Reason: No Longer Taking Prescribed by: COLIN BUSBY on 12/25/21 1111 Last Action: Discontinued Pantoprazole Sodium (Pantoprazole Sodium) 40 Mg Tablet.dr, 40 MG PO DAILY, (Reported) Discontinued Reason: No Longer Taking Entered as Reported by: LUCA SHIN on 12/23/21 1416 Last Action: Discontinued Pantoprazole Sodium (Pantoprazole Sodium) 40 Mg Tablet.dr, 40 MG PO DAILY Discontinued Reason: No Longer Taking Prescribed by: ASHLEY POON on 10/04/22 1001 Last Action: Discontinued Rosuvastatin Calcium (Rosuvastatin Calcium) 40 Mg Tablet, 40 MG PO HS Discontinued Reason: New Order Prescribed by: COLIN BUSBY on 12/25/21 1111 Last Action: Discontinued Review of Systems Review of Systems Constitutional: No chills, No diaphoresis EENTM: blurred vision, mouth swelling, throat swelling; No ear pain, No double vision Respiratory: No cough, No short of breath; other (Difficulty swallowing) Cardiovascular: No chest pain Gastrointestinal: No abdominal pain, No nausea, No vomiting Genitourinary: No dysuria, No frequency Musculoskeletal: No back pain, No joint pain Skin: No change in color, No change in hair/nails All Other Systems Reviewed Negative Unless Noted: Yes Past Xwowqmb-Eoznbp-Miusjm Hx Immunizations Up To Date Tetanus Booster (TDap): More than 5yrs Seasonal Allergies Seasonal Allergies: Yes Past Medical History Surgery/Hospitalization HX: Hypertension, high cholestoral, PANCREATITIS Surgeries: Yes Abdominal, Orthopedic Respiratory: No Cardiac: Yes High Cholesterol, Hypertension Neurological: No Reproductive Disorders: No Sexually Transmitted Disease: No HIV/AIDS: No Genitourinary: No Gastrointestinal: Yes ([employer] STENOSIS INFANT--S/P SURGERY; CHRONIC N/V/D/ ABD PAIN ) Gastroesophageal Reflux, Pancreatitis Musculoskeletal: Yes Arthritis Endocrine: No HEENT: No Loss of Vision: Denies Hearing Impairment: Denies Cancer: No Psychosocial: No Integumentary: No Blood Disorders: No Adverse Reaction/Blood Tranf: No (N/A) Family Medical History Hypertension 19 MOTHER No Family History of: Asthma Diabetes mellitus Respiratory disorder Seizure disorder Diabetes, Hypertension Physical Exam Vital Signs Vital Signs - First Documented 05/19/23 05/19/23 15:54 16:30 Temp 36.0 Pulse 104 Resp 28 B/P (MAP) 162/109 (126) Pulse Ox 98 O2 Delivery Room Air FiO2 60 Capillary Refill : General Appearance: WD/WN, no apparent distress HEENT: PERRL/EOMI, normal ENT inspection, TMs normal, other (Oropharynx does show some edema of the uvula. No stridor. Tolerating secretions. Slight muffling) Cardiovascular: no edema, no gallop, no JVD, tachycardia Respiratory: chest non-tender, lungs clear, normal breath sounds, no respi ratory distress Gastrointestinal: normal bowel sounds, non tender, soft, no organomegaly Back: normal inspection, no CVA tenderness Extremities: normal range of motion, non-tender, normal inspection, no pedal edema Neurologic/Psychiatric: admitted attorneys II-XII nml as tested, no motor/sensory deficits, alert, normal mood/affect, oriented x 3 Lymphatic: no adenopathy Procedures/Interventions Date of ETT Placement: May 19, 2023 Time of ETT Placement: 16:28 Intubation Method: orotracheal Tube Size: 7.5 Medications: Etomidate, Rocuronium Positive End Tide CO2: Yes Breath Sounds after Intubation: bilateral-equal Intubation Complications: no complications Post Intubation Xray: Yes Progress/Results/Core Measures Results/Orders Lab Results Laboratory Tests Test 05/19/23 15:50 Range/Units White Blood Count 8.5 4.3-11.0 10^3/uL Red Blood Count 4.79 4.30-5.52 10^6/uL Hemoglobin 14.8 13.3-17.7 g/dL Hematocrit 45 40-54 % Mean Corpuscular Volume 93 80-99 fL Mean Corpuscular Hemoglobin 31 25-34 pg Mean Corpuscular Hemoglobin Concent 33 32-36 g/dL Red Cell Distribution Width 12.5 10.0-14.5 % Platelet Count 199 130-400 10^3/uL Mean Platelet Volume 11.1 9.0-12.2 fL Immature Granulocyte % (Auto) 1 % Neutrophils (%) (Auto) 71 42-75 % Lymphocytes (%) (Auto) 21 12-44 % Monocytes (%) (Auto) 7 0-12 % Eosinophils (%) (Auto) 1 0-10 % Basophils (%) (Auto) 0 0-10 % Neutrophils # (Auto) 6.1 1.8-7.8 10^3/uL Lymphocytes # (Auto) 1.8 1.0-4.0 10^3/uL Monocytes # (Auto) 0.6 0.0-1.0 10^3/uL Eosinophils # (Auto) 0.0 0.0-0.3 10^3/uL Basophils # (Auto) 0.0 0.0-0.1 10^3/uL Immature Granulocyte # (Auto) 0.1 0.0-0.1 10^3/uL Erythrocyte Sedimentation Rate 18 H 0-15 MM/HR Sodium Level 139 135-145 MMOL/L Potassium Level 3.7 3.6-5.0 MMOL/L Chloride Level 105 98-107 MMOL/L Carbon Dioxide Level 25 21-32 MMOL/L Anion Gap 9 5-14 MMOL/L Blood Urea Nitrogen 14 7-18 MG/DL Creatinine 0.77 0.60-1.30 MG/DL Estimat Glomerular Filtration Rate 118 BUN/Creatinine Ratio 18 Glucose Level 129 H 70-105 MG/DL Calcium Level 9.4 8.5-10.1 MG/DL Corrected Calcium 9.0 8.5-10.1 MG/DL Magnesium Level 2.2 1.6-2.4 MG/DL Total Bilirubin 0.4 0.1-1.0 MG/DL Aspartate Amino Transf (AST/SGOT) 27 5-34 U/L Alanine Aminotransferase (ALT/SGPT) 34 0-55 U/L Alkaline Phosphatase 80 40-136 U/L C-Reactive Protein High Sensitivity 0.69 H 0.00-0.50 MG/DL Total Protein 8.0 6.4-8.2 GM/DL Albumin 4.5 3.2-4.5 GM/DL Triglycerides Level 342 H <150 MG/DL My Orders Orders - ASHLEY BRITT Methylprednisolone Sod Succ (Methylpredn (05/19/23 16:00) Famotidine Injection (Famotidine Injec (05/19/23 16:00) Epinephrine Adult Auto-Inject (Epinephri (05/19/23 16:00) Cbc And Automated Diff (05/19/23 15:55) Comprehensive Metabolic Panel (05/19/23 15:55) Erythrocyte Sedimentation Rate (05/19/23 15:55) Hs C Reactive Protein (05/19/23 15:55) Epinephrine Adult Auto-Inject (Epinephri (05/19/23 16:15) Magnesium (05/19/23 16:31) Chest 1 View, Ap/Pa Only (05/19/23 16:31) Propofol Drip (Icu) (Propofol Drip (Icu) (05/19/23 16:31) Ns Iv 1000 Ml (Ns Iv 1000 Ml) (05/19/23 16:38) Fentanyl Injection (Fentanyl Injection (05/19/23 16:47) Dexmedetomidine 1,000mcg/250ml (Dexmedet (05/19/23 17:00) Fentanyl Drip Pre-Mix (Fentanyl Drip Pre (05/19/23 16:58) Dexmedetomidine 1,000mcg/250ml (Dexmedet (05/19/23 16:57) Medications Given in ED Vital Signs/I&O 05/19/23 05/19/23 05/19/23 05/19/23 15:54 16:30 16:43 17:04 Temp 36.0 Pulse 104 125 120 115 Resp 28 29 B/P (MAP) 162/109 (126) 184/126 176/126 Pulse Ox 98 99 O2 Delivery Room Air FiO2 60 Critical Care Note Critical Care Start Time: 16:00 Stop Time: 16:45 Total Time (minutes) 45 Progress Time spent intubating patient due to worsening angioedema, sedation, evaluating patient's lab work, consult, treatment Departure Communication (PCP) Patient with a history of RA presents to ED with change in voice, difficulty breathing, sore throat and local rash to his right thigh. Patient recieves orencia injections weekly. Injection around 7 AM developed a localized reaction to his right anterior thigh. This rash became worse.Developed changes in his voice difficulty breathing this afternoon. Took 100 mg of Benadryl according to patient, 1 hour before arrival. No itching diffuse rash. He was not hypoxic but was tachycardic. IV was started. Received epinephrine 0.3 mg, IV Solu- Medrol 125 mg, Pepcid 40 mg. Oropharynx did not note swelling of his uvula. There was no evidence of stridor. No evidence of swelling of the tongue. He does take lisinopril as well. Patient swelling continued to worsen. No improvement in his voice. Continue having difficulty swallowing. Due to concerns of potential airway compromise, I discussed with the patient the benefit of intubation to help protect his airway. He agreed to proceed. Etomidate and rocuronium was used. Patient had an episode where his heart rate increased to 150 bpm during sedation with runs of abnormal rhythm. Appeared to have several PVCs. This did improve after a bolus of propofol 100. Successful sedation clear lung sounds bilateral. Chest x-ray verified ET placement. Questionable interstitial edema. Suctioning was performed. No difficulty with intubation. Difficult keeping patient sedated. Patient was initially started on propofol. Increased to 60. Due to patient waking up patient did receive 5 mg of Versed 100 mcg of fentanyl and started on Precedexdrip. Patient end up being maxed out with Precedex at 1.5. Avoided rocuronium as this may have resulted in the abnormal heart rhythm and PVCs that he experienced. My attending physician Dr. Roe did assist with sedation and intubation. Recommended weaning patient off propofol and adding fentanyl drip which patient started to improve before admission. Patient lab work CBC, CMP, magnesium was grossly unremarkable. His heart rate did improve as well as his blood pressure as he did become hypertensive during rapid sequence intubation. Discussed patient with Dr. Herrera who agreed to accept patient to ICU. Consulted with the eICU and talk to Dr. Pierre marketing rep and provided report. Recommended no further treatment at this time. Total critical care time spent 45 minutes secondary to time spent intubating, treatment for angioedema, reviewing lab work and difficulty with general anesthesia maintenance. Impression Primary Impression: Angioedema Disposition: ADMITTED INPATIENT Condition: Stable Admissions Decision to Admit Reason: Admit from ER (General) Decision to Admit/Date: May 19, 2023 Time/Decision to Admit Time: 16:36 Departure-Patient Inst. Referrals: MENA HORTON (PCP/Family) Primary Care Physician ASHLEY BRITT May 19, 2023 16:01
[2023-05-19 16:07] LABS: BASOPHILS % (AUTO) 0 % (0-10); EOSINOPHILS % (AUTO) 1 % (0-10); HEMATOCRIT 45 % (40-54); HEMOGLOBIN 14.8 g/dL (13.3-17.7); LYMPHOCYTES # (AUTO) 1.8 10^3/uL (1.0-4.0); LYMPHOCYTES % (AUTO) 21 % (12-44); MEAN CORPUSCULAR HEMOGLOBIN 31 pg (25-34); MEAN CORPUSCULAR HGB CONC 33 g/dL (32-36); MEAN CORPUSCULAR VOLUME 93 fL (80-99); MEAN PLATELET VOLUME 11.1 fL (9.0-12.2); MONOCYTES # (AUTO) 0.6 10^3/uL (0.0-1.0); MONOCYTES % (AUTO) 7 % (0-12); NEUTROPHILS # (AUTO) 6.1 10^3/uL (1.8-7.8); NEUTROPHILS % (AUTO) 71 % (42-75); PLATELET COUNT 199 10^3/uL (130-400); WHITE BLOOD COUNT 8.5 10^3/uL (4.3-11.0)
[2023-05-19 16:17] LABS: ALBUMIN 4.5 GM/DL (3.2-4.5); POTASSIUM 3.7 MMOL/L (3.6-5.0)
[2023-05-19 16:18] LABS: CALCIUM 9.4 MG/DL (8.5-10.1)
[2023-05-19 16:21] LABS: BILIRUBIN,TOTAL 0.4 MG/DL (0.1-1.0)
[2023-05-19 16:23] LABS: CREATININE SERUM 0.77 MG/DL (0.60-1.30)
[2023-05-19 16:27] LABS: ERYTHROCYTE SEDIMENTATION RATE 18 MM/HR (0-15)
[2023-05-19 16:30] VITALS: BP 196/118
[2023-05-19] MEDS ORDERED: NS IV 1000 ML 1,000 ML IV STA (16:38)
[2023-05-19] MEDS ORDERED: fentaNYL INJECTION 100 MCG/2 ML VIAL IVP STA (16:47)
--- NOTE | 2023-05-19 16:50 | Diagnostic Imaging Report ---
INDICATION: Respiratory failure. Shortness of air. Soft tissue edema. COMPARISON: 05/17/2014. FINDINGS: Single frontal radiographic view of the chest was obtained and demonstrates indwelling endotracheal tube with tip at the clavicular heads. Lungs show low inspiratory volumes with crowding of the central hilar structures and probable exaggeration of the cardiac silhouette. Pulmonary interstitium however does appear prominent. There is no large effusion or pneumothorax. Osseous structures show no acute abnormalities. IMPRESSION: 1. Prominence of the interstitium is noted and may be on the basis of underlying interstitial pulmonary edema. Interstitial pneumonia is not entirely excluded. 2. Indwelling endotracheal tube as above. Dictated by: Dictated on workstation # [id number]
[2023-05-19] MEDS ORDERED: DexMEDEtomidine 1,000mcg/250ml 250 ML IV ONE (16:57)
[2023-05-19] MEDS ORDERED: fentaNYL DRIP PRE-MIX 250 ML IV STA (16:58)
[2023-05-19] MEDS ORDERED: DexMEDEtomidine 1,000mcg/250ml 250 ML IV SCH (17:00)
[2023-05-19] MEDS ORDERED: proPOfol INJECTION 200 MG/20 ML VIAL IV ONE (17:25)
[2023-05-19] MEDS ORDERED: fentaNYL INJECTION 100 MCG/2 ML VIAL IV ONE (17:25)
[2023-05-19] MEDS ORDERED: ROCURONIUM 50 MG/5 ML VIAL IV ONE (17:25)
[2023-05-19] MEDS ORDERED: ETOMIDATE INJ SOLN 20 MG/10 ML VIAL IV ONE (17:25)
[2023-05-19] MEDS ORDERED: MIDAZOLAM INJ 5 MG/5 ML VIAL INJ ONE (17:25)
[2023-05-19] MEDS ORDERED: MIDAZOLAM INJ 5 MG/5 ML VIAL IVP ONE (17:30)
--- NOTE | 2023-05-19 17:33 | Diagnostic Imaging Report ---
INDICATION: OG placement. TECHNIQUE: Single view chest, 5:12 PM. CORRELATION STUDY: 05/19/2023. FINDINGS: Endotracheal tube generally stable in position. A gastric tube has been placed, tip in the left upper quadrant in the expected location of the body of the stomach. Heart size, and mediastinum remain enlarged and prominent. Hypoventilation. Opacities in the right mid and lower bilateral lung bases may reflect atelectasis versus infiltrate, generally stable from prior. IMPRESSION: 1. Orogastric tube tip at the expected location of the body of stomach. 2. Bilateral pulmonary infiltrate-like opacities, generally stable. Dictated by: Dictated on workstation # [id number]
[2023-05-19] MEDS ORDERED: CATHETER FLUSH 10 ML SYR IVP PRN (18:00)
[2023-05-19] MEDS ORDERED: RT-Ipratropium/Albuterol NEB 3 ML VIAL INH PRN (18:45)
--- NOTE | 2023-05-19 18:45 | Tele-ICU Progress Note ---
Subjective Date Seen by a Provider: May 19, 2023 Time Seen by a Provider: 18:44 Subjective/Events-last exam (Tele-ICU Physician , consultation as per request of PCP Service provided via interactive audio and video telecommunications E-CARE system to a patient admitted to ICU bed in [facility]. Available chart/ vitals / labs / Images reviewed H&P is from ER notes Patient's information available about PMH, Shx, Fhx allergy reviewed inEMR. ROS as per chart and RN report Now in ICU, hemodynamically stable Video assessment done using teleICU camera, rest of exam as per RN Discussed with RN. VENT SETTINGS and ABG reviewed NOT CANDIDATE for SBTreviewed possible contraindications including Cardiovascular Stability /Sedation Score / FI02/PEEP / ABG / CXR/ secretions Sedation, discussed with RN, RASS on propofol 60 fental 100 , precedx 1.5 Hospital course: (05/19) 37M Admitted for angioedema. INTUBATED. Got Orencia injection in thigh- started as localized reaction then progressed to angioedema. Has had reactions in past. A/P Acute resp failure , suspected angioedema ( without anaphylaxis) -ACEI vs Vascera - no stridor , minimal edema in ER during intubation - Intubated 05/19 in ER AC 20 500 30 % +5 - keep full bvent suppot suspected angioedema ( without anaphylaxis) -ACEI vs Vascera - received epi 0.3 x2 -- started on steroids high dose , pepcid , benadryl - follow resolution h/o acute interstiaial pancreatitis of the pancreatic tail 07/21 elev TGL 2021 - WILL TRY TO AVOID PROPOFOL if possible - precedex and fevtanyl started Lines : periph , (Central Line Necessity Reviewed) Cesar: + OG: Nutrition: Analgesia: Anxiety/ delirium VTE Prophylaxis rehana 40 Stress Ulcer Prophylaxis: pepcid Plans in collaboration with bedside consultants and IM MDs. Discussed with RN to reach out if any questions or concerns A total of 32 minutes of critical care time was devoted to this patient today, required to treat and/or prevent further deterioration of critical care condition ( as above ) . I am remotely monitoring this patient from another state. I am unable to do the bedside exam, and history/physical and pertinent information is taken from other notes in the computer and bedside staff. . Sepsis Event Evaluation Height, Weight, BMI Height: 5'10.00" Weight: 260lbs. 5.0oz. 118.142300ti; 37.95 BMI Method:Stated Exam Exam Patient acknowledged, consented, and participated in this virtual visit which was conducted using real time audio/video Vital Signs Date Time Temp Pulse Resp B/P (MAP) Pulse Ox O2 Delivery O2 Flow Rate FiO2 05/19/23 18:04 78 05/19/23 17:45 82 129/80 05/19/23 17:42 36.0 84 20 129/80 (96) 98 Mechanical Ventilator 30.00 05/19/23 17:35 85 19 105/92 100 Mechanical Ventilator 05/19/23 17:30 Mechanical Ventilator 30 05/19/23 17:04 115 176/126 05/19/23 16:43 120 184/126 05/19/23 16:30 125 29 99 60 05/19/23 15:54 36.0 104 28 162/109 (126) 98 Room Air Height & Weight Height: 5'10.00" Weight: 260lbs. 5.0oz. 118.423347zc; 37.95 BMI Method:Stated General Appearance: Other Capillary Refill: Less Than 3 Seconds Gastrointestinal: normal bowel sounds, non tender, soft, no organomegaly Results Lab Laboratory Tests 05/19/23 15:50 Assessment/Plan Assessment/Plan 1 DERRICK MERINO MD May 19, 2023 18:45
[2023-05-19] MEDS: 1/2 NS + KCL 20 MEQ/L 1,000 ML 1,000 ML IV SCH (18:52)
[2023-05-19] MEDS: fentaNYL 1,250 MCG/NS 250 ML DRIP IV SCH (18:56)
[2023-05-19 19:06] VITALS: BP 143/100
[2023-05-19] MEDS: diphenhydrAMINE INJ 50 MG/ML VIAL IVP SCH (19:40)
[2023-05-19] MEDS: ENOXAPARIN 40 MG/0.4 ML SYRINGE SC SCH (19:41)
[2023-05-19] MEDS ORDERED: inSUlin ASPART 1 UNIT/0.01 ML (PER UNIT) SC SCH (21:00)
[2023-05-19 21:16] LABS: ABG BASE EXCESS 0.1 MMOL/L (-2.5-2.5); ABG OXYGEN SATURATION 99 % (94-100); ABG PCO2 34 MMHG (35-45); ABG PH 7.45 (7.37-7.43); ABG PO2 127 MMHG (79-93); ABG TCO2 24.6 MMOL/L (21.0-31.0)
[2023-05-19 21:18] LABS: INSPIRED O2 30%; VENTILATOR YES
[2023-05-19 21:26] VITALS: BP 156/110
[2023-05-19] MEDS: FAMOTIDINE INJ 20MG/2ML VIAL IVP SCH (21:58)
[2023-05-19] MEDS: dexAMETHasone INJ 10 MG/ML 1 ML VIAL IV SCH (21:58)
[2023-05-19] MEDS: CATHETER FLUSH 10 ML SYR IVP SCH (22:00)
[2023-05-19] MEDS ORDERED: dexAMETHasone INJ 4 MG/ML SDV IV SCH (22:00)
[2023-05-19] MEDS: DexMEDEtomidine 1,000 MCG/250 ML IV SCH (23:14)
[2023-05-20] MEDS: inSUlin ASPART 1 UNIT/0.01 ML (PER UNIT) SC SCH ×4 (00:50→18:06)
[2023-05-20] MEDS: fentaNYL 1,250 MCG/NS 250 ML DRIP IV SCH ×3 (00:58→13:01)
[2023-05-20 02:31] VITALS: BP 157/105
[2023-05-20] MEDS: diphenhydrAMINE INJ 50 MG/ML VIAL IVP SCH ×3 (03:15→18:05)
[2023-05-20 04:20] LABS: ABG BASE EXCESS -2.3 MMOL/L (-2.5-2.5); ABG OXYGEN SATURATION 98 % (94-100); ABG PCO2 32 MMHG (35-45); ABG PH 7.43 (7.37-7.43); ABG PO2 84 MMHG (79-93); ABG TCO2 22.2 MMOL/L (21.0-31.0); INSPIRED O2 30%; VENTILATOR YES
[2023-05-20] MEDS: 1/2 NS + KCL 20 MEQ/L 1,000 ML 1,000 ML IV SCH ×2 (04:32→15:02)
[2023-05-20] MEDS: DexMEDEtomidine 1,000 MCG/250 ML IV SCH ×3 (04:33→15:50)
[2023-05-20 04:51] LABS: BASOPHILS % (AUTO) 0 % (0-10); EOSINOPHILS % (AUTO) 0 % (0-10); HEMATOCRIT 41 % (40-54); LYMPHOCYTES # (AUTO) 0.5 10^3/uL (1.0-4.0); LYMPHOCYTES % (AUTO) 10 % (12-44); MEAN CORPUSCULAR HEMOGLOBIN 31 pg (25-34); MEAN CORPUSCULAR HGB CONC 34 g/dL (32-36); MEAN CORPUSCULAR VOLUME 90 fL (80-99); MEAN PLATELET VOLUME 11.4 fL (9.0-12.2); MONOCYTES % (AUTO) 1 % (0-12); NEUTROPHILS # (AUTO) 4.6 10^3/uL (1.8-7.8); NEUTROPHILS % (AUTO) 89 % (42-75); PLATELET COUNT 172 10^3/uL (130-400); WHITE BLOOD COUNT 5.2 10^3/uL (4.3-11.0)
[2023-05-20 04:52] LABS: ABG BASE EXCESS -2.3 MMOL/L (-2.5-2.5); ABG OXYGEN SATURATION 97 % (94-100); ABG PCO2 33 MMHG (35-45); ABG PH 7.42 (7.37-7.43); ABG PO2 105 MMHG (79-93); ABG TCO2 22.4 MMOL/L (21.0-31.0)
[2023-05-20 04:53] LABS: INSPIRED O2 30%; VENTILATOR YES
[2023-05-20 05:10] LABS: POTASSIUM 4.2 MMOL/L (3.6-5.0)
[2023-05-20 05:11] LABS: CALCIUM 9.1 MG/DL (8.5-10.1)
[2023-05-20 05:15] LABS: CREATININE SERUM 0.74 MG/DL (0.60-1.30)
[2023-05-20 05:16] LABS: LYMPHOCYTES % (MANUAL) 10 %; MONOCYTES % (MANUAL) 1 %; NEUTROPHILS % (MANUAL) 89 %
[2023-05-20 05:17] LABS: MAGNESIUM 1.9 MG/DL (1.6-2.4)
[2023-05-20] MEDS: MAGNESIUM 1 GM/100 ML IVPB 100 ML IV SCH ×2 (05:45→06:47)
[2023-05-20] MEDS: dexAMETHasone INJ 10 MG/ML 1 ML VIAL IV SCH ×3 (05:57→22:08)
[2023-05-20] MEDS: CATHETER FLUSH 10 ML SYR IVP SCH ×3 (06:04→22:08)
[2023-05-20 07:31] VITALS: BP 128/111
--- NOTE | 2023-05-20 08:18 | Tele-ICU Progress Note ---
Subjective Date Seen by a Provider: May 20, 2023 Time Seen by a Provider: 08:12 Subjective/Events-last exam (Tele-ICU Physician , Progress Note ) Service provided via interactive audio and video telecommunications E-CARE system to a patient admitted to ICU bed in [facility]. Patient is seen today due to persistent need of ICU care Available chart/ vitals / labs / Images reviewed Video assessment done using teleICU camera, rest of exam as per RN Discussed with RN Events overnight : Pt intubated for angioedema from Orencia? given for RA, day 2, AC 20/Vt 500 FiO2 21%, now on IV Propofol @ 25, down IV Fentanyl @ 200, IV Precedex @ 1.5, RASS is about -2 CXR today shows elevated diaphragms probably obesity, atelectasis vs infiltrate in mid right lung, not coughing much, not much secretions, spont cough when suctioned Sepsis Event Evaluation Height, Weight, BMI Height: 5'10.00" Weight: 260lbs. 5.0oz. 118.027958kj; 38.20 BMI Method:Stated Exam Exam Patient acknowledged, consented, and participated in this virtual visit which was conducted using real time audio/video Vital Signs Date Time Temp Pulse Resp B/P (MAP) Pulse Ox O2 Delivery O2 Flow Rate FiO2 05/20/23 07:50 35.9 05/20/23 07:31 74 20 100 21 05/20/23 07:00 56 19 158/108 (129) 100 Mechanical Ventilator 30.00 05/20/23 07:00 58 05/20/23 06:00 55 19 160/114 (129) 100 Mechanical Ventilator 30.00 05/20/23 05:00 56 20 168/111 (130) 100 Mechanical Ventilator 30.00 05/20/23 04:00 56 20 163/111 (128) 100 Mechanical Ventilator 30.00 05/20/23 04:00 100 Mechanical Ventilator 21 05/20/23 03:00 57 20 157/107 (124) 100 Mechanical Ventilator 30.00 05/20/23 02:31 61 20 100 21 05/20/23 02:00 61 19 156/107 (123) 100 Mechanical Ventilator 30.00 05/20/23 01:00 61 19 158/108 (125) 100 Mechanical Ventilator 30.00 05/20/23 00:58 63 156/106 05/20/23 00:04 63 05/20/23 00:00 65 20 156/106 (123) 100 Mechanical Ventilator 30.00 05/19/23 23:59 100 Mechanical Ventilator 30 05/19/23 23:00 66 20 156/108 (124) 100 Mechanical Ventilator 30.00 05/19/23 22:00 65 20 153/107 (122) 100 Mechanical Ventilator 30.00 05/19/23 21:26 62 20 100 21 05/19/23 21:00 59 20 161/111 (128) 100 Mechanical Ventilator 30.00 05/19/23 20:29 36.3 05/19/23 20:00 100 Mechanical Ventilator 30 05/19/23 20:00 61 19 156/111 (126) 100 Mechanical Ventilator 30.00 05/19/23 19:45 57 19 151/106 (121) 100 Mechanical Ventilator 30.00 05/19/23 19:30 58 19 148/104 (119) 100 Mechanical Ventilator 30.00 05/19/23 19:19 36.1 05/19/23 19:15 60 19 148/102 (117) 100 Mechanical Ventilator 30.00 05/19/23 19:06 59 20 100 30 05/19/23 19:04 60 05/19/23 19:00 61 19 143/100 (114) 100 Mechanical Ventilator 30.00 05/19/23 18:53 62 139/96 05/19/23 18:04 78 05/19/23 18:00 77 20 130/84 (98) 100 Mechanical Ventilator 30.00 05/19/23 17:45 82 129/80 05/19/23 17:42 36.0 84 20 129/80 (96) 98 Mechanical Ventilator 30.00 05/19/23 17:35 85 19 105/92 100 Mechanical Ventilator 05/19/23 17:30 Mechanical Ventilator 30 05/19/23 17:04 115 176/126 05/19/23 16:43 120 184/126 05/19/23 16:30 125 29 99 60 05/19/23 15:54 36.0 104 28 162/109 (126) 98 Room Air I & O 05/20/23 06:59 Intake Total 2450 ml Output Total 1550 ml Balance 900 ml Height & Weight Height: 5'10.00" Weight: 260lbs. 5.0oz. 118.446989mf; 38.20 BMI Method:Stated General Appearance: Other HEENT: Other (tongue not protruding but still in mouth, some drooling, face not swollen) Respiratory: Lungs Clear Cardiovascular: Regular Rate, Rhythm, Bradycardia Capillary Refill: Less Than 3 Seconds Gastrointestinal: normal bowel sounds, non tender, soft, no organomegaly Extremity: No Pedal Edema Results Lab Laboratory Tests 05/19/23 15:50 05/20/23 04:35 Assessment/Plan Assessment/Plan Angiodema probably from Ocencia injection Will keep on vent until tongue swelling decreases more BP now 150/110, will give PRN IV hydralzine 10 mg Critical Care: Critically Ill Patient Time spent with patient (mins): 25 HARDEEP PHILLIPS MD May 20, 2023 08:18
[2023-05-20] MEDS: FAMOTIDINE INJ 20MG/2ML VIAL IVP SCH ×2 (08:50→20:17)
--- NOTE | 2023-05-20 09:21 | History & Physical-Hospitalist ---
History of Present Illness HPI/Chief Complaint Patient is a 37-year-old male with past medical history of rheumatoid arthritis who presented to the emergency department due to difficulty swallowing. He has a history of RA and takes Orencia and did his injection at 7 AM yesterday. He has been on this since December and took his dose 2 weeks ago with just a small localized reaction. He missed his last week's dose. After his dose this morning he developed that similar localized reaction with redness in his thigh this continued to progress though and he developed some throat discomfort with difficulty swallowing and talking. He took 100 mg of Benadryl hoping that it would resolve this but when it did not he decided to seek care in the emergency department. He denies any itching or wheezing to the emergency department. He denied nausea or vomiting as well. He was given epinephrine and Solu-Medrol along with Pepcid in the emergency department but his throat swelling continued to worsen and so he was electively intubated in the ER. This morning he remains on the vent and his girlfriend is at bedside who assist with the history otherwise all history is obtained from the records. Source: family Exam Limitations: clinical condition (intubated) Date Seen 05/20/23 Time Seen by a Provider: 08:45 Attending Physician Dyan Merida PCP Admitting Physician: Taylor Damon MD Attending Physician: Taylor Damon MD Referring Physician Date of Admission May 19, 2023 at 17:24 Home Medications & Allergies Home Medications Reviewed patient Home Medication Reconciliation performed by pharmacy medication reconciliations electrocardiograph technician and/or nursing. Patients Allergies have been reviewed. Allergies Allergies Coded Allergies aspirin (Verified Allergy, Severe, ANAPHYLAXIS, 10/09/18) Penicillins (Verified Allergy, Mild, HIVES, 10/09/18) Past Hmucjhj-Suafun-Htubub Hx Patient Social History Tobacco Use?: No Use of E-Cig and/or Vaping dev: No Substance use?: No Alcohol Use?: Yes Alcohol type: Hard Liquor Alcohol Frequency: Daily Pt feels they are or have been: No Immunizations Up To Date Date of Influenza Vaccine: Apr 19, 2014 Tetanus Booster (TDap): Less Than 5 Years Seasonal Allergies Seasonal Allergies: Yes Current Status Advance Directives: No Communicates: Verbally Primary Language: Armenian Preferred Spoken Language: Armenian Past Medical History Surgeries: Abdominal, Orthopedic High Cholesterol, Hypertension Sexually Transmitted Disease: No HIV/AIDS: No Gastroesophageal Reflux, Pancreatitis Arthritis Loss of Vision: Denies Hearing Impairment: Denies Blood Disorders: No Adverse Reaction/Blood Tranf: No (N/A) Family Medical History Hypertension 19 MOTHER No Family History of: Asthma Diabetes mellitus Respiratory disorder Seizure disorder Diabetes, Hypertension Review of Systems Constitutional: see HPI Physical Exam Physical Exam Vital Signs Vital Signs - First Documented 05/19/23 05/19/23 05/19/23 15:54 16:30 17:42 Temp 36.0 Pulse 104 Resp 28 B/P (MAP) 162/109 (126) Pulse Ox 98 O2 Delivery Room Air O2 Flow Rate 30.00 FiO2 60 Capillary Refill : Less Than 3 Seconds Height, Weight, BMI Height: 5'10.00" Weight: 260lbs. 5.0oz. 118.971788tu; 38.20 BMI Method:Stated General Appearance: No Apparent Distress (resting comfortably in bed, sedated), Obese Respiratory: Lungs Clear; No Stridor, No Wheezing; Other (on vent) Cardiovascular: Regular Rate, Rhythm, No Murmur Gastrointestinal: Normal Bowel Sounds, Soft Extremity: No Calf Tenderness, No Pedal Edema Neurologic/Psychiatric: Other (sedated, appears comfrotable, opened eyes briefly during exam when spoken to but quickly back asleep) Results Results/Procedures Labs Laboratory Tests 05/19/23 15:50 05/20/23 04:35 Patient resulted labs reviewed. Imaging: Reviewed Imaging Report Imaging [facility] [place], [place] NAME: YOLETTE GOINS Megan [facility] REC#: [id number] PT STATUS: REG ER : 1985 PHYSICIAN: ASHLEY BRITT ADMIT DATE: 05/19/23/ER Signed Date of Exam:05/19/23 CHEST 1 VIEW, AP/PA ONLY INDICATION: Respiratory failure. Shortness of air. Soft tissue edema. COMPARISON: 05/17/2014. FINDINGS: Single frontal radiographic view of the chest was obtained and demonstrates indwelling endotracheal tube with tip at the clavicular heads. Lungs show low inspiratory volumes with crowding of the central hilar structures and probable exaggeration of the cardiac silhouette. Pulmonary interstitium however does appear prominent. There is no large effusion or pneumothorax. Osseous structures show no acute abnormalities. IMPRESSION: 1. Prominence of the interstitium is noted and may be on the basis of underlying interstitial pulmonary edema. Interstitial pneumonia is not entirely excluded. 2. Indwelling endotracheal tube as above. Dictated by: Dictated on workstation # [id number] Dict: 05/19/23 1647 Trans: 05/19/23 1701 [id number] [id number] Interpreted by: JETT SHORT MD Electronically signed by: JETT SHORT MD 05/19/23 170 Assessment/Plan Admission Diagnosis Angioedema Admission Status: Inpatient Order (span 2 midnights) Reason for Inpatient Admission: see below Assessment and Plan Angioedema Acute Respiratory failure Etiology unclear Not sure if MICHAEL-I or Orencia induced h/o of anaphylaxis to ASA in the past Received epi x3 in the ER with progression so electively intubated Continue Decadron, pepcid, and benadryl Precdex and Fentanyl for sedation given 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
[2023-05-20] MEDS: hydrALAZINE INJECTION 20 MG/ML VIAL IV PRN (10:09)
--- NOTE | 2023-05-20 10:20 | Physical Therapy Progress Note ---
Therapy Progress Note Pt remains intubated and sedated. He was ambulatory on admission 05/19. Plan to assess mobility when patient is awake and alert JUAN A BATISTA PT May 20, 2023 10:20
[2023-05-20] MEDS ORDERED: FENO48TA11 PO (10:49)
[2023-05-20] MEDS ORDERED: ABAT125A SQ (10:49)
[2023-05-20] MEDS ORDERED: CELE-91 PO (10:49)
[2023-05-20] MEDS ORDERED: ROSU20TA73 PO (10:49)
[2023-05-20 10:52] VITALS: BP 136/85
--- NOTE | 2023-05-20 11:01 | Diagnostic Imaging Report ---
HISTORY: Intubation. COMPARISON: 05/19/2023. TECHNIQUE: Frontal view of the chest. FINDINGS: The endotracheal tube is 4 cm above the calderon. The distal enteric tube tip is not well seen, but appears to be at least down to the distal esophagus. Lung volumes are low. There is cardiomegaly. There are linear opacities in the lungs bilaterally. No large effusion or pneumothorax is seen. IMPRESSION: 1. The endotracheal tube is 4 cm above the calderon. The enteric tube is not well seen distally but reaches at least the distal esophagus. 2. Low lung volumes with bilateral opacities, may be atelectasis or infiltrate. Stable cardiomegaly. Dictated by: Dictated on workstation # [id number]
[2023-05-20 15:00] VITALS: BP 139/95
[2023-05-20 17:11] VITALS: BP_SYST 137; BP_SYST 141; BP_DIAS 98
--- NOTE | 2023-05-20 18:05 | Tele-ICU Progress Note ---
Subjective Date Seen by a Provider: May 20, 2023 Time Seen by a Provider: 18:03 Subjective/Events-last exam called by RN, tongue swelling way down, no resp distress, tried on PSV 10, did well, passed cuff leak test. Can extubate but would like someone with airway skills be present in room when extubated Sepsis Event Evaluation Height, Weight, BMI Height: 5'10.00" Weight: 260lbs. 5.0oz. 118.465435on; 38.20 BMI Method:Stated Exam Exam Patient acknowledged, consented, and participated in this virtual visit which was conducted using real time audio/video Vital Signs Date Time Temp Pulse Resp B/P (MAP) Pulse Ox O2 Delivery O2 Flow Rate FiO2 05/20/23 17:11 67 15 99 05/20/23 17:11 65 17 141/98 21 05/20/23 17:00 75 15 137/98 (108) 98 Mechanical Ventilator 30.00 05/20/23 16:00 61 19 140/99 (115) 99 Mechanical Ventilator 30.00 05/20/23 16:00 36.0 05/20/23 16:00 98 Mechanical Ventilator 21 05/20/23 15:00 64 19 139/95 (109) 100 Mechanical Ventilator 30.00 05/20/23 15:00 64 20 100 21 05/20/23 14:00 66 20 136/94 (107) 98 Mechanical Ventilator 30.00 05/20/23 13:00 65 19 140/92 (105) 98 Mechanical Ventilator 30.00 05/20/23 12:35 70 05/20/23 12:00 64 19 137/90 (105) 98 Mechanical Ventilator 30.00 05/20/23 11:46 36.6 05/20/23 11:04 98 Mechanical Ventilator 21 05/20/23 11:00 67 20 136/85 (100) 97 Mechanical Ventilator 30.00 05/20/23 10:52 68 20 97 21 05/20/23 10:00 57 20 156/111 (129) 100 Mechanical Ventilator 30.00 05/20/23 09:00 70 12 151/107 (120) 100 Mechanical Ventilator 30.00 05/20/23 08:00 58 19 151/106 (124) 99 Mechanical Ventilator 30.00 05/20/23 08:00 98 Mechanical Ventilator 21 05/20/23 07:50 35.9 05/20/23 07:31 74 20 100 21 05/20/23 07:00 56 19 158/108 (129) 100 Mechanical Ventilator 30.00 05/20/23 07:00 58 05/20/23 06:00 55 19 160/114 (129) 100 Mechanical Ventilator 30.00 05/20/23 05:00 56 20 168/111 (130) 100 Mechanical Ventilator 30.00 05/20/23 04:00 56 20 163/111 (128) 100 Mechanical Ventilator 30.00 05/20/23 04:00 100 Mechanical Ventilator 21 05/20/23 03:00 57 20 157/107 (124) 100 Mechanical Ventilator 30.00 05/20/23 02:31 61 20 100 21 05/20/23 02:00 61 19 156/107 (123) 100 Mechanical Ventilator 30.00 05/20/23 01:00 61 19 158/108 (125) 100 Mechanical Ventilator 30.00 05/20/23 00:58 63 156/106 05/20/23 00:04 63 05/20/23 00:00 65 20 156/106 (123) 100 Mechanical Ventilator 30.00 05/19/23 23:59 100 Mechanical Ventilator 30 05/19/23 23:00 66 20 156/108 (124) 100 Mechanical Ventilator 30.00 05/19/23 22:00 65 20 153/107 (122) 100 Mechanical Ventilator 30.00 05/19/23 21:26 62 20 100 21 05/19/23 21:00 59 20 161/111 (128) 100 Mechanical Ventilator 30.00 05/19/23 20:29 36.3 05/19/23 20:00 100 Mechanical Ventilator 30 05/19/23 20:00 61 19 156/111 (126) 100 Mechanical Ventilator 30.00 05/19/23 19:45 57 19 151/106 (121) 100 Mechanical Ventilator 30.00 05/19/23 19:30 58 19 148/104 (119) 100 Mechanical Ventilator 30.00 05/19/23 19:19 36.1 05/19/23 19:15 60 19 148/102 (117) 100 Mechanical Ventilator 30.00 05/19/23 19:06 59 20 100 30 05/19/23 19:04 60 05/19/23 19:00 61 19 143/100 (114) 100 Mechanical Ventilator 30.00 05/19/23 18:53 62 139/96 05/19/23 18:04 78 I & O 05/20/23 06:59 Intake Total 2450 ml Output Total 1550 ml Balance 900 ml Height & Weight Height: 5'10.00" Weight: 260lbs. 5.0oz. 118.208988gx; 38.20 BMI Method:Stated General Appearance: No Apparent Distress (resting comfortably in bed, sedated), Obese HEENT: Other (tongue not protruding but still in mouth, some drooling, face not swollen) Respiratory: Lungs Clear; No Stridor, No Wheezing; Other (on vent) Cardiovascular: Regular Rate, Rhythm, No Murmur Capillary Refill: Less Than 3 Seconds Gastrointestinal: normal bowel sounds, non tender, soft, no organomegaly Extremity: No Calf Tenderness, No Pedal Edema Neurologic/Psychiatric: Other (sedated, appears comfrotable, opened eyes briefly during exam when spoken to but quickly back asleep) Results Lab Laboratory Tests 05/19/23 15:50 05/20/23 04:35 Assessment/Plan Assessment/Plan called by RN, tongue swelling way down, no resp distress, tried on PSV 10, did well, passed cuff leak test. Can extubate but would like someone with airway skills be present in room when extubated Critical Care: Ventilator Management Time spent with patient (mins): 15 HARDEEP PHILLIPS MD May 20, 2023 18:05
[2023-05-20] MEDS ORDERED: RT-RACEPINEPHRINE 2.25% 0.5 ML VIAL ONE (18:07)
[2023-05-20] MEDS: ENOXAPARIN 40 MG/0.4 ML SYRINGE SC SCH (20:16)
[2023-05-21] MEDS: DexMEDEtomidine 1,000 MCG/250 ML IV SCH (00:17)
[2023-05-21] MEDS: inSUlin ASPART 1 UNIT/0.01 ML (PER UNIT) SC SCH ×2 (00:35→06:27)
[2023-05-21] MEDS: 1/2 NS + KCL 20 MEQ/L 1,000 ML 1,000 ML IV SCH ×2 (00:49→01:58)
[2023-05-21] MEDS: diphenhydrAMINE INJ 50 MG/ML VIAL IVP SCH (03:43)
[2023-05-21 04:17] VITALS: BP 143/95
[2023-05-21 04:37] LABS: BASOPHILS % (AUTO) 0 % (0-10); EOSINOPHILS % (AUTO) 0 % (0-10); HEMATOCRIT 39 % (40-54); HEMOGLOBIN 13.2 g/dL (13.3-17.7); LYMPHOCYTES # (AUTO) 0.8 10^3/uL (1.0-4.0); LYMPHOCYTES % (AUTO) 7 % (12-44); MEAN CORPUSCULAR HEMOGLOBIN 31 pg (25-34); MEAN CORPUSCULAR HGB CONC 34 g/dL (32-36); MEAN CORPUSCULAR VOLUME 91 fL (80-99); MEAN PLATELET VOLUME 11.3 fL (9.0-12.2); MONOCYTES # (AUTO) 0.5 10^3/uL (0.0-1.0); MONOCYTES % (AUTO) 4 % (0-12); NEUTROPHILS # (AUTO) 10.5 10^3/uL (1.8-7.8); NEUTROPHILS % (AUTO) 88 % (42-75); PLATELET COUNT 152 10^3/uL (130-400); WHITE BLOOD COUNT 11.9 10^3/uL (4.3-11.0)
[2023-05-21 04:53] LABS: POTASSIUM 4.3 MMOL/L (3.6-5.0)
[2023-05-21 04:54] LABS: CALCIUM 8.5 MG/DL (8.5-10.1)
[2023-05-21 04:58] LABS: CREATININE SERUM 0.77 MG/DL (0.60-1.30)
[2023-05-21 05:01] LABS: MAGNESIUM 2.1 MG/DL (1.6-2.4)
[2023-05-21] MEDS: CATHETER FLUSH 10 ML SYR IVP SCH ×2 (05:24→13:49)
[2023-05-21] MEDS: dexAMETHasone INJ 10 MG/ML 1 ML VIAL IV SCH ×2 (06:27→13:47)
[2023-05-21] MEDS ORDERED: D5 1/2 NS 1,000 ML IV 1,000 ML IV PRN (08:15)
[2023-05-21] MEDS ORDERED: ONDANSETRON INJECTION 4 MG/2 ML (SDV) IV PRN (08:15)
[2023-05-21] MEDS ORDERED: 1/2 NS IV SOLUTION 1000 ML 1,000 ML IV PRN (08:15)
[2023-05-21] MEDS ORDERED: LORazepam 1 MG TABLET PO PRN (08:15)
[2023-05-21] MEDS ORDERED: ONDANSETRON 4 MG ORAL DISSOLVE TABLET SL PRN (08:15)
--- NOTE | 2023-05-21 08:34 | Tele-ICU Progress Note ---
Subjective Date Seen by a Provider: May 21, 2023 Time Seen by a Provider: 08:33 Subjective/Events-last exam Tele-ICU Physician , consultation as per request of PCP Service provided via interactive audio and video telecommunications E-CARE system to a patient admitted to ICU bed in [facility]. Available chart/ vitals / labs / Images reviewed H&P is from ER notes Patient's information available about PMH, Shx, Fhx allergy reviewed inEMR. ROS as per chart and RN report Video assessment done using teleICU camera, rest of exam as per RN Discussed with RN. Successfully extubated yesterday, no SOB, stridor or increased WOB, tongue looks much better, able to drink EtOH-episodes of tachycardia, diaphroesis, anxiety, On IV Precedex @ 0.9, also got 2 mg po Ativan Sepsis Event Evaluation Height, Weight, BMI Height: 5'10.00" Weight: 260lbs. 5.0oz. 118.368939mr; 38.45 BMI Method:Stated Exam Exam Patient acknowledged, consented, and participated in this virtual visit which was conducted using real time audio/video Vital Signs Date Time Temp Pulse Resp B/P (MAP) Pulse Ox O2 Delivery O2 Flow Rate FiO2 05/21/23 08:11 36.2 05/21/23 08:00 51 17 154/109 (125) 100 Face Tent 35.00 05/21/23 07:00 52 16 133/90 (108) 100 Face Tent 35.00 05/21/23 07:00 48 05/21/23 06:00 48 18 141/97 (112) 100 Face Tent 35.00 05/21/23 05:00 48 18 151/93 (112) 100 Face Tent 05/21/23 04:17 47 143/95 05/21/23 04:00 51 17 149/99 (116) 100 Face Tent 35.00 05/21/23 04:00 97 Room Air 05/21/23 04:00 35.9 05/21/23 03:11 100 Face Tent 10.00 35 05/21/23 03:00 49 18 146/99 (115) 100 Face Tent 35.00 05/21/23 02:00 62 17 143/96 (112) 100 Face Tent 35.00 05/21/23 01:06 47 05/21/23 01:06 97 Face Tent 10.00 35 05/21/23 01:00 53 16 144/96 (112) 100 Face Tent 35.00 05/21/23 00:48 Face Tent 35.00 05/21/23 00:43 55 143/95 05/21/23 00:37 35.8 05/21/23 00:17 64 141/98 05/21/23 00:00 51 16 145/96 (112) 100 05/20/23 23:59 98 Room Air 05/20/23 23:00 50 19 132/93 (106) 99 Room Air 05/20/23 22:00 52 20 127/90 (102) 97 Room Air 05/20/23 21:00 51 24 134/94 (107) 100 Room Air 05/20/23 20:00 60 18 157/99 (118) 100 Room Air 05/20/23 20:00 98 Room Air 05/20/23 19:36 36.6 05/20/23 19:00 71 20 149/93 (111) 100 Room Air 05/20/23 19:00 64 05/20/23 18:42 Room Air 05/20/23 18:00 54 14 133/91 (108) 100 Mechanical Ventilator 30.00 05/20/23 17:11 67 15 99 05/20/23 17:11 65 17 141/98 21 05/20/23 17:00 75 15 137/98 (108) 98 Mechanical Ventilator 30.00 05/20/23 16:00 61 19 140/99 (115) 99 Mechanical Ventilator 30.00 05/20/23 16:00 36.0 05/20/23 16:00 98 Mechanical Ventilator 21 05/20/23 15:00 64 19 139/95 (109) 100 Mechanical Ventilator 30.00 05/20/23 15:00 64 20 100 21 05/20/23 14:00 66 20 136/94 (107) 98 Mechanical Ventilator 30.00 05/20/23 13:00 65 19 140/92 (105) 98 Mechanical Ventilator 30.00 05/20/23 12:35 70 05/20/23 12:00 64 19 137/90 (105) 98 Mechanical Ventilator 30.00 05/20/23 11:46 36.6 05/20/23 11:04 98 Mechanical Ventilator 21 05/20/23 11:00 67 20 136/85 (100) 97 Mechanical Ventilator 30.00 05/20/23 10:52 68 20 97 21 05/20/23 10:00 57 20 156/111 (129) 100 Mechanical Ventilator 30.00 05/20/23 09:00 70 12 151/107 (120) 100 Mechanical Ventilator 30.00 I & O 05/21/23 06:59 Intake Total 1250 ml Output Total 3250 ml Balance -2000 ml Height & Weight Height: 5'10.00" Weight: 260lbs. 5.0oz. 118.371190ul; 38.45 BMI Method:Stated General Appearance: No Apparent Distress (resting comfortably in bed, sedated), Anxious, Obese HEENT: Other (tongue much better, no drooling) Respiratory: Lungs Clear; No Stridor, No Wheezing; Other (no stridor) Cardiovascular: Regular Rate, Rhythm, No Murmur, Bradycardia Capillary Refill: Less Than 3 Seconds Gastrointestinal: normal bowel sounds, non tender, soft, no organomegaly Extremity: No Calf Tenderness, No Pedal Edema Neurologic/Psychiatric: Alert, Oriented x3, Other (sedated, appears comfrotable, opened eyes briefly during exam when spoken to but quickly back asleep) Results Lab Laboratory Tests 05/19/23 15:50 05/20/23 04:35 05/21/23 04:30 Assessment/Plan Assessment/Plan Doing well, can go to general medical floor once off IV Precedex Has to be watched for EtOH withdrawal, Critical Care: Critically Ill Patient Time spent with patient (mins): 20 HARDEEP PHILLIPS MD May 21, 2023 08:34
[2023-05-21] MEDS: hydrALAZINE INJECTION 20 MG/ML VIAL IV PRN (08:39)
[2023-05-21] MEDS: FAMOTIDINE INJ 20MG/2ML VIAL IVP SCH (08:39)
[2023-05-21] MEDS ORDERED: THIAMINE INJECTION 100 MG, FOLIC ACID INJECTION 1 MG, MAGNESIUM SULFATE 2 GM, MULTIVITA... IV SCH ×5 (09:00)
--- NOTE | 2023-05-21 10:25 | Progress Note - Hospitalist ---
Subjective HPI/CC On Admission Date Seen by Provider: May 21, 2023 Patient is a 37-year-old male with past medical history of rheumatoid arthritis who presented to the emergency department due to difficulty swallowing. He has a history of RA and takes Orencia and did his injection at 7 AM yesterday. He has been on this since December and took his dose 2 weeks ago with just a small localized reaction. He missed his last week's dose. After his dose this morning he developed that similar localized reaction with redness in his thigh this continued to progress though and he developed some throat discomfort with difficulty swallowing and talking. He took 100 mg of Benadryl hoping that it would resolve this but when it did not he decided to seek care in the emergency department. He denies any itching or wheezing to the emergency department. He denied nausea or vomiting as well. He was given epinephrine and Solu-Medrol along with Pepcid in the emergency department but his throat swelling continued to worsen and so he was electively intubated in the ER. This morning he remains on the vent and his girlfriend is at bedside who assist with the history otherwise all history is obtained from the records. Subjective/Events-last exam Pt reports feeling better today. Extubated yesterday evening. Only complaint is that he is feeling groggy. Still on precedex. Developed some withdrawal symptoms overnight per RN. Patient is adamant that he will leave today because he has his daughter today. Discussed by concerns regarding biphasic anaphylaxis would be best to monitor again another night. Also that he is still on precedex and being monitored for withdrawal. Objective Exam Vital Signs Vital Signs Date Time Temp Pulse Resp B/P (MAP) Pulse Ox O2 Delivery O2 Flow Rate FiO2 05/21/23 10:00 80 16 127/78 (88) 97 Face Tent 35.00 05/21/23 08:11 36.2 05/21/23 03:11 35 Capillary Refill : Less Than 3 Seconds General Appearance: No Apparent Distress, Obese Respiratory: Lungs Clear, No Respiratory Distress Cardiovascular: Regular Rate, Rhythm, No Murmur Neurologic/Psychiatric: Alert, Oriented x3 Results/Procedures Lab Laboratory Tests 05/21/23 04:30 Patient resulted labs reviewed. Imaging: Reviewed Imaging Report Assessment/Plan Assessment and Plan Assess & Plan/Chief Complaint Angioedema Acute Respiratory failure Alcohol withdrawal Etiology unclear Not sure if MICHAEL-I or Orencia induced h/o of anaphylaxis to ASA in the past Extubated yesterday PM, doing well Continue Decadron, pepcid, and benadryl Precedex CIWA protocol RA Hold home Orencia HTN Hold Lisinopril Hydralazine prn HLD Resume statin and fenofibrate when med rec done and tolreating DVt ppx: Lovenox Critical Care Critically Ill Patient Diagnosis/Problems Diagnosis/Problems (1) Angioedema Status: Acute (2) Hypertriglyceridemia Status: Acute (3) Acute respiratory failure TAYLOR DAMON MD May 21, 2023 10:24
[2023-05-21] MEDS ORDERED: diphenhydrAMINE 25 MG TABLET PO SCH (11:00)
[2023-05-21] MEDS ORDERED: inSUlin ASPART 1 UNIT/0.01 ML (PER UNIT) SC SCH (11:00)
--- NOTE | 2023-05-21 18:53 | Discharge Summary ---
Diagnosis/Chief Complaint Date of Admission May 19, 2023 at 17:32 Date of Discharge May 21, 2023 at 16:10 Admission Diagnosis Angioedema Primary Care Merida,Dyan Navarro Lifestyle Coordinator Discharge Diagnosis (1) Angioedema Status: Acute (2) Hypertriglyceridemia Status: Acute (3) Acute respiratory failure Discharge Summary Discharge Physical Exam Allergies: Coded Allergies: aspirin (Verified Allergy, Severe, ANAPHYLAXIS, 10/09/18) Penicillins (Verified Allergy, Mild, HIVES, 10/09/18) Vitals & I&Os Vital Signs Date Time Temp Pulse Resp B/P (MAP) Pulse Ox O2 Delivery O2 Flow Rate FiO2 05/21/23 15:41 37.1 05/21/23 15:00 106 27 99 Room Air 05/21/23 14:00 05/21/23 07:46 28 General Appearance: No Apparent Distress, WD/WN, Obese Respiratory: Lungs Clear Cardiovascular: Regular Rate, Rhythm, No Murmur Hospital Course Pt was admitted to the hospital due to angioedema severe enough to require intubation. He remained on the ventilator for roughly 24 hours to allow for adequate treatment with benadryl, steroids, and pepcid after receiving epi x3 in the ER. His tongue swelling was much improved and he was extubated without issue. He started to develop symptoms of alcohol withdrawal and did report drinking a pint a day with his last drink being two days ago. I encouraged continued hospitalization for management of withdrawal and and to monitor for biphasic anaphylaxis. We discussed the risks and benefits of continued hospitalization in the presence of his girlfriend but he elected to leave A. Labs (last 24 hrs) Laboratory Tests 05/21/23 00:20: Glucometer 147H 05/21/23 04:30: White Blood Count 11.9H, Red Blood Count 4.31, Hemoglobin 13.2L, Hematocrit 39L, Mean Corpuscular Volume 91, Mean Corpuscular Hemoglobin 31, Mean Corpuscular Hemoglobin Concent 34, Red Cell Distribution Width 12.2, Platelet Count 152, Mean Platelet Volume 11.3, Immature Granulocyte % (Auto) 1, Neutrophils (%) (Auto) 88H, Lymphocytes (%) (Auto) 7L, Monocytes (%) (Auto) 4, Eosinophils (%) (Auto) 0, Basophils (%) (Auto) 0, Neutrophils # (Auto) 10.5H, Lymphocytes # (Auto) 0.8L, Monocytes # (Auto) 0.5, Eosinophils # (Auto) 0.0, Basophils # (Auto) 0.0, Immature Granulocyte # (Auto) 0.1, Sodium Level 134L, Potassium Level 4.3, Chloride Level 104, Carbon Dioxide Level 22, Anion Gap 8, Blood Urea Nitrogen 13, Creatinine 0.77, Estimat Glomerular Filtration Rate 118, BUN/Creatinine Ratio 17, Glucose Level 177H, Calcium Level 8.5, Magnesium Level 2.1 05/21/23 11:01: Glucometer 150H 05/21/23 15:20: Glucometer 165H Microbiology 05/20/23 Gram Stain - Final, Resulted 05/20/23 Sputum Culture - Preliminary, Resulted Positive; See Report Usual upper respiratory felipe Patient resulted labs reviewed. Pending Labs Laboratory Tests 05/21/23 11:01: Glucometer 150 05/21/23 15:20: Glucometer 165 Imaging: Reviewed Imaging Report Discharge Home Medications: Active Scripts Active Ondansetron Odt (Ondansetron) 4 Mg Tab.rapdis 4 Mg SL Q6H PRN 5 Days Reported Orencia Clickject (Abatacept) 125 Mg/Ml Auto.injct 125 Mg SQ WEEK Rosuvastatin Calcium 20 Mg Tablet 20 Mg PO DAILY Fenofibrate (Fenofibrate Nanocrystallized) 48 Mg Tablet 48 Mg PO DAILY Celecoxib 200 Mg Capsule 200 Mg PO DAILY Lisinopril-Hctz 20-12.5 mg Tab (Lisinopril/Hydrochlorothiazide) 20 Mg-12.5 Mg Tablet 1 Each PO DAILY Instructions to patient/family Please see electronic discharge instructions given to patient. TAYLOR DAMON MD May 21, 2023 18:53
[2023-05-21] MEDS ORDERED: ROSUVASTATIN 20 MG TABLET PO SCH (21:00)
== END 2023-05-21 16:10 | disposition left against medical advice (07) | DRG 915 ==
LOC: EDUNIT# 15:45 → ER 15:47 → ICU 17:24 → OBSVTOIN 17:32
PROVIDERS: ADMIT Family Medicine; ATTEND Family Medicine
PROC: 5A1945Z Respiratory Ventilation, 24-96 Consecutive Hours (ICD-10-PCS; principal; 2023-05-19)
PROC: 0BH17EZ Insertion of Endotracheal Airway into Trachea, Via Natural or Artificial Opening (ICD-10-PCS; 2023-05-19)
DX: T78.3XXA Angioneurotic edema, initial encounter (principal); J96.00 Acute respiratory failure, unspecified whether with hypoxia or hypercapnia; F10.239 Alcohol dependence with withdrawal, unspecified; E78.00 Pure hypercholesterolemia, unspecified; M06.9 Rheumatoid arthritis, unspecified; I10 Essential (primary) hypertension; E78.5 Hyperlipidemia, unspecified; F41.9 Anxiety disorder, unspecified; K21.9 Gastro-esophageal reflux disease without esophagitis
CPT/HCPCS: 31500; 36415; 36600; 51702; 71045; 80048; 80053; 82805; 82947; 83735; 84478; 85007; 85025; 85027; 85652; 86141; 87070; 87081; 87205; 93041; 94002; 94003; 94799